=== PATIENT | male | born 1950 | race Caucasian/White ===

== ENCOUNTER 2017-04-29 14:05 | Inpatient (IN) | payer BC, MEDICARE ==
[~2017-04-29] VITALS: Ht 180.3 cm; Wt 93.5 kg
[~2017-04-29 14:05] MED LIST: ASP81CT PO; CRB200T PO; DCS100C PO; HYDR-34 PO; IBP600T1 PO; IBUP-15 PO; SULF1TAB38 PO; advil; tylenol PO
--- OUTSIDE RECORDS SUMMARY | 2017-04-29 14:11 | XMS REPORT | Continuity of Care Document ---
Author Author [facility] Organization [facility] Address Unknown Phone Unavailable Allergies Medications Problems Procedures Results Encounters ACCT No. Visit Date/Time Discharge Status Pt. Type Provider Facility Loc./Unit Complaint [id number] 03/12/2013 09:12:00 2013 00:01:00 DIS Outpatient [id number] 02/06/2013 10:30:00 2012 12:30:00 DIS Inpatient [id number] 02/04/2013 15:16:00 2012 23:59:59 CLS Outpatient [id number] 01/24/2013 08:48:00 2012 13:05:00 DIS Outpatient [id number] 01/22/2013 07:16:00 2012 23:59:59 CLS Outpatient [id number] 12/16/2012 15:03:00 2012 00:01:00 DIS Outpatient [id number] 12/24/2012 14:29:00 2012 23:59:59 CLS Outpatient [id number] 12/13/2012 15:06:00 2012 23:59:59 CLS Outpatient [id number] 12/06/2012 13:54:00 2012 23:59:59 CLS Outpatient [id number] 11/20/2012 15:09:00 2012 23:59:59 CLS Outpatient [id number] 11/11/2012 14:53:00 2012 23:59:59 CLS Outpatient [id number] 10/29/2012 13:00:00 2012 23:59:59 CLS Outpatient [id number] 10/22/2012 09:37:00 2012 23:59:59 CLS Outpatient [id number] 10/12/2012 17:42:00 2012 14:00:00 DIS Inpatient
--- NOTE | 2017-04-29 14:28 | ED General ---
General Chief Complaint: Lower Extremity Stated Complaint: UNABLE TO WALK Source of Information: Patient Exam Limitations: No Limitations History of Present Illness Time Seen by Provider: 14:24 Initial Comments To ER with unable to walk for the past week due to bilateral leg weakness. Patient states that his legs feel like Jell-O. He has a history of colon cancer treated with radiation, surgical resection, chemotherapy 4 years ago. He states that 2 weeks ago he was lifting a [place] tree and has since had pain between his shoulder blades as well as progressive weakness in both legs. He believes he injured this in picking up the [place] tree. However, the who is very tearful, states that this pain between his shoulder blades hasn 't fact been present for nearly a year, he did cough up blood within the last month and seems a bit more confused lately. He is a patient of Dr. Canales. states that he never followed up after treatment of his cancer and mentioned to her that he would never even consider chemotherapy again due to the toll it took on him during the first round. He does report a 20 pound weight loss in the last month as well as no appetite Timing/Duration: 1-2 Days Severity: Moderate Associated Systoms: Loss of Appetite Allergies and Home Medications Allergies Coded Allergies: No Known Drug Allergies (Unverified , 02/04/13) Home Medications Carbamazepine 200 Mg Tablet, 400 MG PO BID, (Reported) Hydrocodone Bit/Acetaminophen 1 Ea Tablet, 1-2 TAB PO Q4H PRN, #35 Ref 1 ( Reported) Constitutional: see HPI EENTM: see HPI Respiratory: see HPI, cough, hemoptysis Cardiovascular: no symptoms reported Genitourinary: no symptoms reported Musculoskeletal: see HPI, back pain Skin: no symptoms reported Psychiatric/Neurological: No Symptoms Reported Hematologic/Lymphatic: No Symptoms Reported Immunological/Allergic: no symptoms reported Past Ttilbql-Undwyr-Kzyiif Hx Patient Social History Alcohol Use: Denies Use Recreational Drug Use: No Smoking Status: Former Smoker Type Used: Cigarettes Former Smoker, Quit: Apr 13, 1966 Recent Foreign Travel: No Contact w/Someone Who Travel: No Immunizations Up To Date Tetanus Booster (TDap): Unknown Surgeries History of Surgeries: Yes (3 brain surg post trauma) Surgeries: Abdominal Respiratory History of Respiratory Disorde: Yes (PE post trauma 1994) Cardiovascular History of Cardiac Disorders: No Neurological History of Neurological Disord: Yes (trauma 1994; 3 brain surgeries) Reproductive System Hx Reproductive Disorders: No Sexually Transmitted Disease: No HIV/AIDS: No Gastrointestinal History of Gastrointestinal Di: Yes (COLON CA) Musculoskeletal History of Musculoskeletal Dis: Yes (back injury L5 1991) Musculoskeletal Disorders: Degenerate Disk Disease, Back Injury Endocrine History of Endocrine Disorders: No HEENT Hearing Impairment: Hard of Hearing Cancer History of Cancer: Yes Cancer: Colon Psychosocial History of Psychiatric Problem: No Integumentary History of Skin or Integumenta: Yes Skin/Integumentary Disorders: Eczema, Psoriasis Blood Transfusions History of Blood Disorders: No Adverse Reaction to a Blood Tr: No Family Medical History Significant Family History: Heart Disease, Hypertension Physical Exam Vital Signs Vital Sign - Last 12Hours 04/29/17 14:17 Temp 98.9 Pulse 66 Resp 16 B/P (MAP) 192/103 Pulse Ox 95 Capillary Refill : General Appearance: No Apparent Distress, WD/WN Eyes: Bilateral Eye Normal Inspection, Bilateral Eye PERRL HEENT: PERRL/EOMI, TMs Normal Neck: Full Range of Motion, Normal Inspection Respiratory: Normal Breath Sounds, No Accessory Muscle Use, No Respiratory Distress Cardiovascular: Regular Rate, Rhythm, Normal Peripheral Pulses Gastrointestinal: Normal Bowel Sounds, Non Tender, Soft Extremity: Normal Capillary Refill, Normal Inspection Neurologic/Psychiatric: Alert, Oriented x3, No Motor/Sensory Deficits Skin: Normal Color, Warm/Dry Progress/Results/Core Measures Suspected Sepsis SIRS Temperature: Pulse: Respiratory Rate: Laboratory Tests 04/29/17 14:03: White Blood Count 6.8 Blood Pressure / Mean: Laboratory Tests 04/29/17 14:03: Creatinine 0.85, INR Comment 1.0, Platelet Count 361, Total Bilirubin 0.4 Results/Orders Lab Results Laboratory Tests Test 04/29/17 14:03 04/29/17 15:45 Range/Units White Blood Count 6.8 4.3-11.0 10^3/uL Red Blood Count 4.25 L 4.35-5.85 10^6/uL Hemoglobin 13.6 13.3-17.7 G/DL Hematocrit 40 40-54 % Mean Corpuscular Volume 93 80-99 FL Mean Corpuscular Hemoglobin 32 25-34 PG Mean Corpuscular Hemoglobin Concent 34 32-36 G/DL Red Cell Distribution Width 12.0 10.0-14.5 % Platelet Count 361 130-400 10^3/uL Mean Platelet Volume 8.5 7.4-10.4 FL Neutrophils (%) (Auto) 76 H 42-75 % Lymphocytes (%) (Auto) 15 12-44 % Monocytes (%) (Auto) 9 0-12 % Eosinophils (%) (Auto) 0 0-10 % Basophils (%) (Auto) 0 0-10 % Neutrophils # (Auto) 5.2 1.8-7.8 X 10^3 Lymphocytes # (Auto) 1.0 1.0-4.0 X 10^3 Monocytes # (Auto) 0.6 0.0-1.0 X 10^3 Eosinophils # (Auto) 0.0 0.0-0.3 10^3/uL Basophils # (Auto) 0.0 0.0-0.1 10^3/uL Prothrombin Time 12.9 12.2-14.7 SEC INR Comment 1.0 0.8-1.4 Sodium Level 134 L 135-145 MMOL/L Potassium Level 4.5 3.6-5.0 MMOL/L Chloride Level 101 98-107 MMOL/L Carbon Dioxide Level 23 21-32 MMOL/L Anion Gap 10 5-14 MMOL/L Blood Urea Nitrogen 11 7-18 MG/DL Creatinine 0.85 0.60-1.30 MG/DL Estimat Glomerular Filtration Rate > 60 BUN/Creatinine Ratio 13 Glucose Level 102 70-105 MG/DL Calcium Level 10.2 H 8.5-10.1 MG/DL Total Bilirubin 0.4 0.1-1.0 MG/DL Aspartate Amino Transf (AST/SGOT) 24 5-34 U/L Alanine Aminotransferase (ALT/SGPT) 40 0-55 U/L Alkaline Phosphatase 186 H 40-136 U/L Total Protein 6.5 6.4-8.2 GM/DL Albumin 3.8 3.2-4.5 GM/DL Urine Color YELLOW Urine Clarity CLEAR Urine pH 6.5 5-9 Urine Specific [place] 1.010 L 1.016-1.022 Urine Protein 1+ H NEGATIVE Urine Glucose (UA) NEGATIVE NEGATIVE Urine Ketones 1+ H NEGATIVE Urine Nitrite NEGATIVE NEGATIVE Urine Bilirubin NEGATIVE NEGATIVE Urine Urobilinogen NORMAL NORMAL MG/DL Urine Leukocyte Esterase NEGATIVE NEGATIVE Urine RBC (Auto) NEGATIVE NEGATIVE Urine RBC NONE /HPF Urine WBC NONE /HPF Urine Squamous Epithelial Cells RARE /HPF Urine Crystals NONE /LPF Urine Bacteria NONE /HPF Urine Casts NONE /LPF Urine Mucus NEGATIVE /LPF Urine Culture Indicated NO My Orders Orders - JLUIS CRUZ APRN Ct Head Wo (04/29/17 14:22) Ct Thoracic/Lumbar Spine W (04/29/17 14:22) Cbc With Automated Diff (04/29/17 14:22) Comprehensive Metabolic Panel (04/29/17 14:22) Protime With Inr (04/29/17 14:22) Ua Culture If Indicated (04/29/17 14:22) Saline Lock/Iv-Start (04/29/17 14:22) Ns Iv 1000 Ml (Sodium Chloride 0.9%) (04/29/17 14:30) Ct Chest/Abdomen/Pelvis W (04/29/17 14:29) Iohexol Injection (Omnipaque 350 Mg/Ml 1 (04/29/17 15:00) Ns (Ivpb) (Sodium Chloride 0.9% Ivpb Bag (04/29/17 15:00) Medications Given in ED Current Medications Medications Dose Ordered Sig/Maggi Route Start Time Stop Time Status Last Admin Dose Admin Iohexol 100 ml ONCE ONCE IV 04/29/17 15:00 04/29/17 15:01 DC 04/29/17 15:04 100 ML Sodium Chloride 100 ml ONCE ONCE IV 04/29/17 15:00 04/29/17 15:01 DC 04/29/17 15:04 80 ML Vital Signs/I&O Vital Sign - Last 12Hours 04/29/17 14:17 Temp 98.9 Pulse 66 Resp 16 B/P (MAP) 192/103 Pulse Ox 95 Capillary Refill : Diagnostic Imaging Diagonstic Imaging: Xray Plain Films/CT/US/NM/MRI: chest Comments NAME: AMADO KING [facility] REC#: [id number] PT STATUS: REG ER : 1950 PHYSICIAN: JLUIS CRUZ APRN ADMIT DATE: 04/29/17/ER Draft Date of Exam:04/29/17 CT HEAD WO PROCEDURE: CT head without contrast. TECHNIQUE: Multiple contiguous axial images were obtained through the brain without the use of intravenous contrast. INDICATION: Head injury. History of colon cancer. COMPARISON: 02/12/2013. FINDINGS: Bifrontal encephalomalacia deep to bifrontal craniotomy, unchanged. Right temporoparietal cortical encephalomalacia also deep to a craniotomy site, unchanged. There is no intracerebral hemorrhage and no new or acute area of abnormal attenuation was found. No acute calvarial abnormality demonstrated. There is no hydrocephalus. No findings of edema. IMPRESSION: Extensive postsurgical changes to the calvarium, stable. Chronic areas of bifrontal and right temporal parietal cortical encephalomalacia, unchanged from 2013. No hemorrhage, edema or acute pathology. Dictated on workstation # [id number] Dict: 04/29/17 1505 Trans: 04/29/17 1510 [facility] [id number] Interpreted by: ELANA TEIXEIRA Electronically signed by: NAME: AMADO KING [facility] REC#: [id number] PT STATUS: REG ER : 1950 PHYSICIAN: JLUIS CRUZ APRN ADMIT DATE: 04/29/17/ER Draft Date of Exam:04/29/17 CT CHEST/ABDOMEN/PELVIS W PROCEDURE: CT chest, abdomen, and pelvis with contrast. TECHNIQUE: Multiple contiguous axial images were obtained through the chest, abdomen, and pelvis after the administration of intravenous contrast. INDICATION: Colon cancer. FINDINGS: CT CHEST: There are multiple bilateral pulmonary nodules present which are too numerous to count. These range in size from several millimeters up to 6.0 x 6.8 cm. This larger lesion is in the right lower lobe. There is a confluence of lesions in the right hilum that involve an area measuring approximately 7.0 x 8.5 cm. There is probably atelectatic lung in this confluence of lesions as well. There is no lobular infiltrate. There is no effusion or pneumothorax. There is no lymphadenopathy. No bony destructive lesions are seen. CT ABDOMEN/PELVIS: There is a vague 15 mm peripherally enhancing lesion seen in the medial segment of the left lobe of the liver which is difficult to determine if this is artifactual versus hemangioma versus neoplasm. No other liver lesions are evident. The gallbladder and bile ducts are normal. The spleen, pancreas and adrenals are normal. The kidneys, ureters and bladder are normal. There is a ventral hernia in the left lower quadrant containing a loop of small bowel. This may be at the site of a previous ostomy. There is no obstruction and no acute bowel abnormality is seen. There is no adenopathy. No bony destructive lesions are seen. IMPRESSION: 1. There are multiple bilateral lung lesions consistent with diffuse lung parenchymal metastatic disease. 2. There is a ventral hernia in the left lower quadrant. There is a vague lesion in the left lobe of the liver, which could be a metastatic lesion. Dictated on workstation # [id number] Dict: 04/29/17 1516 Trans: 04/29/17 1532 [facility] [id number] Interpreted by: ZULLY CROCKER MD Electronically signed by: NAME: AMADO KING [facility] REC#: [id number] PT STATUS: REG ER : 1950 PHYSICIAN: JLUIS CRUZ APRN ADMIT DATE: 04/29/17/ER Draft Date of Exam:04/29/17 CT THORACIC/LUMBAR SPINE W PROCEDURE: CT thoracic and lumbar spine with contrast. TECHNIQUE: After uneventful intrathecal administration of contrast, axial images were obtained through the thoracic and lumbar spine. INDICATION: Back pain. History of colon cancer. Difficulty moving. COMPARISON: Limited to a CT fusion PET performed 10/22/2012. FINDINGS: There are innumerable bilateral soft tissue density lung masses, presumptively reflective of widespread pulmonary parenchymal involvement by metastatic disease which appear new from the prior metabolic PET CT. There is mixed lytic and sclerotic disease involving the visualized lower cervical vertebral bodies, presumptively metastatic. There is marked destructive changes with lytic and sclerotic bony metastasis throughout the T3 vertebral body and its pedicles lamina and posterior elements with associated pathological fracture and mild posterior cortical retropulsion. Extensive lytic disease to the L1 vertebral body with pathological fracture of its mid to anterior third present. The disease extends posteriorly on the left via the pedicle and into with lamina and transverse process. This levels shows only mild leftward retropulsion. Multiple additional thoracolumbar bodies show more heterogeneous and less conspicuous altered density, likely widespread metastatic disease is present but no additional suspected pathological fracture is found. IMPRESSION: 1. Findings suggest extensive multifocal bony involvement by metastatic disease with pathological fractures at T3 and L1. If there are neurological symptoms present, MRI would be able to evaluate for soft tissue canalicular involvement which would not be an unexpected finding, particularly associated with the T3 lesion. 2. Widespread pulmonary parenchymal metastatic disease. Likely additional metastatic deposits are less conspicuous on CT than would be likely demonstrated on bone scan or MRI. Dictated on workstation # [id number] Dict: 04/29/17 1528 Trans: 04/29/17 1540 [facility] [id number] Interpreted by: ELANA TEIXEIRA Electronically signed by: Departure Communication (Admissions) Time/Spoke to Admitting Phy: 16:50 Communication I did discuss the diagnosis with Dr. Canales who came in to discuss this with the patient as well as he is a long-time friend of theirs. Patient's and daughter are very anxious about this diagnosis. Patient was told of the severity of disease. I did discuss with Dr. charles-up. We will admit. I discussed with Dr. Bob who is on-call for orthopedics and will evaluate the case tomorrow after an MRI of the thoracic spine to determine if there is any surgical intervention that would be helpful. We will consult Dr. Villanueva tomorrow from oncology. Time/Spoke to Consulting Phy: 16:51 Communication/Consulting I did speak with Dr. Bob from orthopedics and notified him on consult. I will let the floor nurses consult Dr. 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 Referrals: CLARENCE CANALES MD (PCP/Family) Primary Care Physician JLUIS CRUZ APRN Apr 29, 2017 14:27
[2017-04-29] MEDS ORDERED: NS IV 1000 ML 1,000 ML IV SCH (14:30)
[2017-04-29 14:32] LABS: BASOPHILS % (AUTO) 0 % (0-10); EOSINOPHILS % (AUTO) 0 % (0-10); LYMPHOCYTES % (AUTO) 15 % (12-44); MEAN CORPUSCULAR HEMOGLOBIN 32 PG (25-34); MEAN CORPUSCULAR HGB CONC 34 G/DL (32-36); MEAN CORPUSCULAR VOLUME 93 FL (80-99); MEAN PLATELET VOLUME 8.5 FL (7.4-10.4); MONOCYTES # (AUTO) 0.6 X 10^3 (0.0-1.0); MONOCYTES % (AUTO) 9 % (0-12); NEUTROPHILS # (AUTO) 5.2 X 10^3 (1.8-7.8); NEUTROPHILS % (AUTO) 76 % (42-75); PLATELET COUNT 361 10^3/uL (130-400); RED BLOOD COUNT 4.25 10^6/uL (4.35-5.85); WHITE BLOOD COUNT 6.8 10^3/uL (4.3-11.0)
[2017-04-29 14:36] LABS: PROTHROMBIN TIME PATIENT 12.9 SEC (12.2-14.7)
[2017-04-29 14:42] LABS: ALANINE AMINOTRANSFERASE 40 U/L (0-55); ALBUMIN 3.8 GM/DL (3.2-4.5); ANION GAP 10 MMOL/L (5-14); ASPARTATE AMINO TRANSFERASE 24 U/L (5-34); BILIRUBIN,TOTAL 0.4 MG/DL (0.1-1.0); BLOOD UREA NITROGEN 11 MG/DL (7-18); BUN/CREATININE RATIO 13; CALCIUM 10.2 MG/DL (8.5-10.1); CARBON DIOXIDE 23 MMOL/L (21-32); CHLORIDE 101 MMOL/L (98-107); CREATININE SERUM 0.85 MG/DL (0.60-1.30); GFR ESTIMATED > 60; GLUCOSE 102 MG/DL (70-105); POTASSIUM 4.5 MMOL/L (3.6-5.0); SODIUM 134 MMOL/L (135-145); TOTAL PROTEIN 6.5 GM/DL (6.4-8.2)
[2017-04-29] MEDS ORDERED: IOHEXOL 350 MG/ML 100 ML (OMNIPAQUE 350) VIAL IV ONE (15:00)
[2017-04-29] MEDS ORDERED: NS 100 ML (IVPB) BAG IV ONE (15:00)
--- NOTE | 2017-04-29 15:10 | Diagnostic Imaging Report ---
PROCEDURE: CT head without contrast. TECHNIQUE: Multiple contiguous axial images were obtained through the brain without the use of intravenous contrast. INDICATION: Head injury. History of colon cancer. COMPARISON: 02/12/2013. FINDINGS: Bifrontal encephalomalacia deep to bifrontal craniotomy, unchanged. Right temporoparietal cortical encephalomalacia also deep to a craniotomy site, unchanged. There is no intracerebral hemorrhage and no new or acute area of abnormal attenuation was found. No acute calvarial abnormality demonstrated. There is no hydrocephalus. No findings of edema. IMPRESSION: Extensive postsurgical changes to the calvarium, stable. Chronic areas of bifrontal and right temporal parietal cortical encephalomalacia, unchanged from 2013. No hemorrhage, edema or acute pathology. Dictated by: Dictated on workstation # [id number]
--- NOTE | 2017-04-29 15:33 | Diagnostic Imaging Report ---
PROCEDURE: CT chest, abdomen, and pelvis with contrast. TECHNIQUE: Multiple contiguous axial images were obtained through the chest, abdomen, and pelvis after the administration of intravenous contrast. INDICATION: Colon cancer. FINDINGS: CT CHEST: There are multiple bilateral pulmonary nodules present which are too numerous to count. These range in size from several millimeters up to 6.0 x 6.8 cm. This larger lesion is in the right lower lobe. There is a confluence of lesions in the right hilum that involve an area measuring approximately 7.0 x 8.5 cm. There is probably atelectatic lung in this confluence of lesions as well. There is no lobular infiltrate. There is no effusion or pneumothorax. There is no lymphadenopathy. No bony destructive lesions are seen. CT ABDOMEN/PELVIS: There is a vague 15 mm peripherally enhancing lesion seen in the medial segment of the left lobe of the liver which is difficult to determine if this is artifactual versus hemangioma versus neoplasm. No other liver lesions are evident. The gallbladder and bile ducts are normal. The spleen, pancreas and adrenals are normal. The kidneys, ureters and bladder are normal. There is a ventral hernia in the left lower quadrant containing a loop of small bowel. This may be at the site of a previous ostomy. There is no obstruction and no acute bowel abnormality is seen. There is no adenopathy. No bony destructive lesions are seen. IMPRESSION: 1. There are multiple bilateral lung lesions consistent with diffuse lung parenchymal metastatic disease. 2. There is a ventral hernia in the left lower quadrant. There is a vague lesion in the left lobe of the liver, which could be a metastatic lesion. Dictated by: Dictated on workstation # [id number]
--- NOTE | 2017-04-29 15:40 | Diagnostic Imaging Report ---
PROCEDURE: CT thoracic and lumbar spine with contrast. TECHNIQUE: After uneventful intrathecal administration of contrast, axial images were obtained through the thoracic and lumbar spine. INDICATION: Back pain. History of colon cancer. Difficulty moving. COMPARISON: Limited to a CT fusion PET performed 10/22/2012. FINDINGS: There are innumerable bilateral soft tissue density lung masses, presumptively reflective of widespread pulmonary parenchymal involvement by metastatic disease which appear new from the prior metabolic PET CT. There is mixed lytic and sclerotic disease involving the visualized lower cervical vertebral bodies, presumptively metastatic. There is marked destructive changes with lytic and sclerotic bony metastasis throughout the T3 vertebral body and its pedicles lamina and posterior elements with associated pathological fracture and mild posterior cortical retropulsion. Extensive lytic disease to the L1 vertebral body with pathological fracture of its mid to anterior third present. The disease extends posteriorly on the left via the pedicle and into with lamina and transverse process. This levels shows only mild leftward retropulsion. Multiple additional thoracolumbar bodies show more heterogeneous and less conspicuous altered density, likely widespread metastatic disease is present but no additional suspected pathological fracture is found. IMPRESSION: 1. Findings suggest extensive multifocal bony involvement by metastatic disease with pathological fractures at T3 and L1. If there are neurological symptoms present, MRI would be able to evaluate for soft tissue canalicular involvement which would not be an unexpected finding, particularly associated with the T3 lesion. 2. Widespread pulmonary parenchymal metastatic disease. Likely additional metastatic deposits are less conspicuous on CT than would be likely demonstrated on bone scan or MRI. Dictated by: Dictated on workstation # [id number]
[2017-04-29 16:05] LABS: BILIRUBIN,URINE NEGATIVE (NEGATIVE); KETONES,URINE 1+ (NEGATIVE); LEUKOCYTE ESTERASE ,URINE NEGATIVE (NEGATIVE); NITRITE,URINE NEGATIVE (NEGATIVE); PH,URINE 6.5 (5-9); PROTEIN,URINE 1+ (NEGATIVE); UROBILINOGEN,URINE NORMAL (NORMAL)
[2017-04-29 16:12] LABS: SQUAMOUS EPITHELIAL CELL,UR RARE /HPF
--- OUTSIDE RECORDS SUMMARY | 2017-04-29 17:21 | XMS REPORT | Continuity of Care Document ---
Author Author [facility] Organization [facility] Address Unknown Phone Unavailable Allergies Medications Problems Procedures Results Encounters ACCT No. Visit Date/Time Discharge Status Pt. Type Provider Facility Loc./Unit Complaint [id number] 03/12/2013 09:12:00 2013 00:01:00 DIS Outpatient [id number] 02/06/2013 10:30:00 2012 12:30:00 DIS Inpatient [id number] 02/04/2013 15:16:00 2012 23:59:59 CLS Outpatient [id number] 01/24/2013 08:48:00 2012 13:05:00 DIS Outpatient [id number] 01/22/2013 07:16:00 2012 23:59:59 CLS Outpatient [id number] 12/16/2012 15:03:00 2012 00:01:00 DIS Outpatient [id number] 12/24/2012 14:29:00 2012 23:59:59 CLS Outpatient [id number] 12/13/2012 15:06:00 2012 23:59:59 CLS Outpatient [id number] 12/06/2012 13:54:00 2012 23:59:59 CLS Outpatient [id number] 11/20/2012 15:09:00 2012 23:59:59 CLS Outpatient [id number] 11/11/2012 14:53:00 2012 23:59:59 CLS Outpatient [id number] 10/29/2012 13:00:00 2012 23:59:59 CLS Outpatient [id number] 10/22/2012 09:37:00 2012 23:59:59 CLS Outpatient [id number] 10/12/2012 17:42:00 2012 14:00:00 DIS Inpatient
[2017-04-29 17:46] VITALS: BP 180/75
[2017-04-29] MEDS ORDERED: CARB200T PO (17:57)
[2017-04-29] MEDS ORDERED: IBUP-2055 PO (18:04)
[2017-04-29] MEDS ORDERED: ACET325T49 PO (18:04)
[2017-04-29] MEDS: NS IV 1000 ML 1,000 ML IV SCH (18:05)
[2017-04-29] MEDS: fentaNYL INJECTION 100 MCG/2 ML AMP IVP PRN ×2 (19:25→23:46)
[2017-04-29 19:53] VITALS: BP 174/75
[2017-04-29] MEDS ORDERED: CATHETER FLUSH 10 ML SYR IV PRN (20:30)
[2017-04-29] MEDS: CATHETER FLUSH 10 ML SYR IV SCH (20:52)
[2017-04-30 00:43] VITALS: BP 170/80
[2017-04-30] MEDS: NS IV 1000 ML 1,000 ML IV SCH ×4 (02:10→20:12)
[2017-04-30 04:02] VITALS: BP 171/81
[2017-04-30] MEDS: CATHETER FLUSH 10 ML SYR IV SCH ×3 (05:40→20:13)
[2017-04-30] MEDS: fentaNYL INJECTION 100 MCG/2 ML AMP IVP PRN ×2 (06:11→08:56)
[2017-04-30] MEDS ORDERED: INFLUENZA TRIvalent 2017-2018 0.5 ML/45 MCG SYR IM ONE (07:15)
[2017-04-30 08:00] VITALS: BP 139/77
[2017-04-30] MEDS ORDERED: ACETAMINOPHEN 500 MG TAB (TYLENOL) ONE (09:40)
[2017-04-30] MEDS: ACETAMINOPHEN 500 MG TAB (TYLENOL) PO PRN (10:00)
[2017-04-30 12:00] VITALS: BP 161/84
--- NOTE | 2017-04-30 12:30 | History & Physical-Hospitalist ---
HPI History of Present Illness: HPI/Chief Complaint The patient is a 67-year-old white male who presented to the emergency room last night with complaints of back pain and bilateral leg weakness. He is very hard of hearing and may be slightly confused. He was found to have colon cancer approximate 4 years ago. He was treated with radiation chemotherapy and surgical resection. His reports that for some time he has reported mild back pain. Over the last 2 weeks this has gotten worse. Ultimately it week ago or so he was getting an artificial [place] tree down from the loft in the garage. Although his daughter had protested she would help he took it upon himself. The box was not particularly heavy but rather unwieldy and his pain increased. Over the last several days he has been having more and more trouble with back pain and difficulty walking. He was brought by family to be more confused yesterday. He apparently has experienced poor appetite and a recent weight loss which may be as much as 20 pounds over the last month. In the emergency room studies were done which showed extensive metastatic disease both pulmonary and multifocal in the spine. In addition there was evidence of vertebral compression fractures and possible cord compression at T3 and L1. Source: patient, family Exam Limitations: no limitations Date Seen 04/30/17 Time Seen by Provider: 12:00 Attending Physician Cammy Tse MD PCP Rafi Canales MD Referring Physician Date of Admission Apr 29, 2017 at 16:36 Home Medications & Allergies Home Medications Reviewed patient Home Medication Reconciliation Form Allergies Allergies Coded Allergies No Known Drug Allergies ([id number]/26/17) Past Xqmspgo-Afpexk-Qgtwmj Hx Patient Social History Alcohol Use: Denies Use Number of Drinks Today: AA Recreational Drug Use: No Smoking Status: Former Smoker Former Smoker, Quit: Apr 13, 1966 Type Used: Cigarettes Physical Abuse Screen: No Sexual Abuse: No Recent Foreign Travel: No Contact w/other who traveled: No Recent Hopitalizations: No Recent Infectious Disease Expo: No Immunizations Up To Date Tetanus Booster (TDap): Unknown Pediatric: No Seasonal Allergies Seasonal Allergies: No Surgeries Yes (3 brain surg post trauma) Abdominal Respiratory Yes (PE post trauma 1994) Currently Using CPAP: No Currently Using BIPAP: No Cardiovascular No Neurological Yes (trauma 1994; 3 brain surgeries) Reproductive System Hx Reproductive Disorders: No Sexually Transmitted Disease: No HIV/AIDS: No Genitourinary No Gastrointestinal Yes (COLON CA) Musculoskeletal Yes (back injury L5 1992) Degenerate Disk Disease, Back Injury Endocrine History of Endocrine Disorders: No Are Your Blood Sugars Over 250: No HEENT History of HEENT Disorders: Yes ([place]) Hearing Impairment: Hard of Hearing Cancer Yes Colon Psychosocial History of Psychiatric Problem: No Integumentary History of Skin or Integumenta: Yes Skin/Integumentary Disorders: Eczema, Psoriasis Blood Transfusions History of Blood Disorders: No Adverse Reaction to a Blood Tr: No Family Medical History Significant Family History: Heart Disease, Hypertension Family Hx: Patient reports no known family medical history. Review of Systems Constitutional: see HPI EENTM: no symptoms reported Respiratory: no symptoms reported, other (hemoptysis within the past month) Cardiovascular: no symptoms reported Gastrointestinal: loss of appetite Genitourinary: no symptoms reported Musculoskeletal: back pain, muscle weakness Skin: no symptoms reported Psychiatric/Neurological: No Symptoms Reported Physical Exam Physical Exam Vital Signs Vital Sign - Last 12Hours 04/29/17 04/29/17 14:17 17:46 Temp 98.9 Pulse 66 Resp 16 B/P (MAP) 192/103 Pulse Ox 95 O2 Delivery Room Air Capillary Refill : Less Than 3 Seconds General Appearance: No Apparent Distress, WD/WN Eyes: Bilateral Eye Normal Inspection HEENT: Normal ENT Inspection Neck: Normal Inspection Respiratory: Chest Non Tender, Lungs Clear, Normal Breath Sounds, No Accessory Muscle Use, No Respiratory Distress, Decreased Breath Sounds (distant) Cardiovascular: Regular Rate, Rhythm, No Edema, No Gallop, No JVD, No Murmur, Normal Peripheral Pulses Gastrointestinal: Normal Bowel Sounds, No Organomegaly, No Pulsatile Mass, Non Tender, Soft Back: Normal Inspection, No CVA Tenderness, No Vertebral Tenderness Extremity: Normal Capillary Refill, Normal Inspection, Non Tender, No Calf Tenderness, No Pedal Edema Neurologic/Psychiatric: Alert, Oriented x3, Normal 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 2.widely placed pulmonary metastases. 3.adenocarcinoma of the colon diagnosis approximately 4 years. Assessment and Plan Plan: MRI spine for more detailed information relative to spinal cord compression. 2.ortho 4 states spine evaluation Clinical Quality Measures DVT/VTE Risk/Contraindication: Risk Factor Score Per Nursin RFS Level Per Nursing on Admit: 4+=Very High PERRI KNUTSON MD Apr 30, 2017 12:30
[2017-04-30] MEDS: HYDROmorphone (DILAUDID) 2 MG/ML VIAL IVP PRN ×2 (13:01→17:24)
[2017-04-30] MEDS ORDERED: GADOBUTROL 10 MMOL/10 ML (GADAVIST) VIAL IV ONE (14:00)
[2017-04-30 16:00] VITALS: BP 138/67
--- NOTE | 2017-04-30 16:16 | Diagnostic Imaging Report ---
EXAMINATION: Multiplanar, multisequence MRI of the thoracic spine performed with and without intravenous contrast. INDICATION: Metastatic colon cancer to the spine. FINDINGS: There is a pathologic fracture involving T3 vertebral body level with 50% vertebral body height loss and an enhancing mass involving the vertebral body and the posterior elements with extension into the epidural space. This is resulting in moderate to severe spinal canal stenosis reducing the AP dimension of the central canal to 6.4 mm with suggestion of mild cord compression and minimal cord edema. There is also tumor enhancement seen around the neural foramina of T2/3 resulting in moderate stenosis on the left and severe stenosis on the right side. There is suggestion of a compression fracture at L1 vertebral body favored to be chronic. There is however abnormal marrow signal and enhancement at T12 and L1 vertebral bodies and posterior elements. This level demonstrates no significant spinal canal stenosis however. The other vertebral bodies in the thoracic spine demonstrate normal height and no significant disc herniation, spinal canal stenosis or mass. IMPRESSION: 1. A 50% pathologic compression fracture of T3 vertebral body related to an underlying metastatic mass that extends to the surrounding soft tissues and posterior elements. There is mass extension into the epidural space at this level resulting in moderate to severe spinal canal stenosis and mild cord compression with minimal cord edema. 2. Abnormal enhancement involving vertebral bodies and posterior elements of primarily L1 and to a lesser degree T12 vertebral bodies suggestive of metastatic disease. This appears to be superimposed on an old L1 30% compression fracture. Doctor claude Ansari is called and given findings at time of dictation. Dictated by: Dictated on workstation # [id number]
--- NOTE | 2017-04-30 16:23 | Diagnostic Imaging Report ---
PROCEDURE: MRI lumbar spine with and without contrast. TECHNIQUE: Multiplanar, multisequence MRI of the lumbar spine was performed with and without contrast. INDICATION: Colon cancer metastasis. 8 mL of Gadavist is administered intravenously. FINDINGS: The alignment of the lumbar spine is satisfactory. There is a compression fracture of 30% height loss at L1 level with features suggestive of chronicity. There is, however, significant bone marrow signal abnormality within the L1 vertebral body and posterior elements as well as vertebral body of T12 and its posterior elements. This is worse along the posterior elements on the left side and worse along the left side of the vertebral bodies. There is also along the left side of L2 vertebral body a lesion measuring 1.4 cm. All these lesions demonstrate postcontrast enhancement. These lesions are compatible with metastatic disease. There is no significant spinal canal stenosis at any level. The cauda equina and conus medullaris appear grossly unremarkable with no enhancing nodules within the thecal sac. There is disc desiccation at all levels. T12/L1: There is metastatic disease involving mostly the left side of the vertebral bodies and posterior elements. The left neural foramen is severely compressed by tumor at this level. The right foramen is patent. There is tumor moderately compressing the lateral recess on the left side as well at this level. L1/2: No disc herniation, no spinal canal stenosis. There is apvhvgud-gj-yikmxv left foraminal narrowing from tumor extension. L2/3: There is no significant disc herniation and no spinal canal stenosis. No foraminal narrowing. L3/4: No spinal canal stenosis. There is facet hypertrophy. Mild foraminal stenosis is seen bilaterally. L4/5: Mild disc bulge without spinal canal stenosis. Hlvy-mg-flqfwrqx facet hypertrophy. There is bilateral moderate foraminal stenosis. L5/S1: There is an asymmetric disc bulge to the left. There is no spinal canal stenosis. The foramina demonstrate moderate stenosis bilaterally. IMPRESSION: There is suggestion of metastatic disease involving the L1 and T12 vertebral bodies, mostly on the left side and associated with extension into the posterior elements on the left side as well as minimal epidural extension in the lateral aspect of the spinal canal on the left side without significant spinal canal stenosis. The left lateral recess demonstrates some compression, however. There is also stenosis of the left neural foramina at T12/L1 and L1/L2. There is suggestion of an old 30% compression fracture of L1. Dictated by: Dictated on workstation # [id number]
--- NOTE | 2017-04-30 16:24 | Diagnostic Imaging Report ---
PROCEDURE: MR imaging cervical spine with and without contrast. TECHNIQUE: Multiplanar and multisequence MRI of the cervical spine was performed with and without contrast. INDICATION: Metastatic colon cancer. Weakness. 8 mL of Gadovist is administered intravenously. FINDINGS: There is reversal of the curvature of the cervical spine. The vertebral body heights are preserved. There is disc desiccation at all levels. The spinal cord in the cervical segments demonstrates no significant compression or mass seen within the cervical segments. At T3 vertebral body, there is a pathologic fracture with a mass that extends into the epidural space causing wampqkcu-jx-ctgroe spinal canal stenosis and mild cord compression as described in the thoracic spine dedicated study. There are no metastatic lesions seen in the cervical spine. The cervical spine segments of the spinal cord demonstrate normal signal. Disc spur complexes are seen in the mid and lower cervical spine levels with no significant spinal canal stenosis at any level. The foramina assessment is as follows: C2-C3: Mild stenosis only on the left. C3-C4: Rayz-fr-czgzdukd stenosis on the right and mild stenosis on the left. C4-C5: Bilateral stenosis of worxlbhi-ij-wfoaqf degree on the right and moderate degree on the left. C5-C6: Severe stenosis on the right and moderate stenosis on the left. C7-T1: Bilateral moderate stenosis. IMPRESSION: 1. Pathologic fracture at T3 level with enhancing tumor in the epidural space causing mild cord compression. 2. No evidence of metastatic disease in the cervical spine. 3. Multilevel neuroforaminal stenosis with no high-grade spinal canal stenosis in the cervical spine seen at any level. The findings in the thoracic spine were discussed with Dr. Bob and with Dr. Ansari by Dr. Velazquez at time of dictation. Dictated by: Dictated on workstation # [id number]
[2017-04-30] MEDS ORDERED: DEXAMETHASONE 4 MG/ML SDV (DECADRON) IV SCH (17:00)
--- NOTE | 2017-04-30 17:26 | Oncology Consultation ---
Visit Information Visit Information Date of Admission Apr 29, 2017 at 16:36 Attending Physician Cammy Tse MD Admitting Physician Rafi Canales MD Chief Complaint Back pain and weakness of the legs. H/o colon cancer Interval History Mr. Pathak is a 67 year old white man with h/o stage II adenocarcinoma of the colon 2013 s/p neoadjuvant chemoradiation treatment followed by surgical resection 03/[address] Campbell. He lost follow up since the surgery. He presented to ER yesterday with back pain and weakness of the legs. CT scan showed multiple lung masses and liver mets. MRI showed multiple bone mets with pathological fractures at T3, T12/L1/L2 areas and mild cord compression. He was admitted for pain control and IV steroid. His legs are getting better today since the steroid and Fentanyl treatment. No loss of bowel and bladder. I consulted the patient on: 04/30/17 17:18 Time Seen by Provider: 16:45 Constitutional: weakness EENTM: no symptoms reported Respiratory: no symptoms reported Cardiovascular: no symptoms reported Gastrointestinal: see HPI Genitourinary: see HPI Health Status Allergies Coded Allergies: No Known Drug Allergies (Unverified , 04/29/17) Home Medications Acetaminophen (Acetaminophen) 325 Mg Tablet, 650 MG PO Q6H PRN for PAIN-MILD, ( Reported) TAKES 2 (325 MG) TABLETS / TAKES ALONG WITH IBUPROFEN Carbamazepine (Tegretol) 200 Mg Tablet, 400 MG PO BID, (Reported) TAKES 2 (200 MG) TABLETS Ibuprofen (Ibuprofen) 200 Mg Tablet, 400-800 MG PO Q6H PRN for PAIN-MILD, ( Reported) TAKES 2-4 (200 MG) TABLETS / TAKES ALONG WITH ACETAMINOPHEN ZFQ-Ehexfm-Xuqbye Hx Patient Social History Alcohol Use: Denies Use Recreational Drug Use: No Smoking Status: Former Smoker Type Used: Cigarettes Recent Foreign Travel: No Contact w/other who traveled: No Recent Infectious Disease Expo: No Recent Hopitalizations: No Physical Abuse Screen: No Sexual Abuse: No Immunizations Up To Date Tetanus Booster (TDap): Unknown Family Medical History Significant Family History: Heart Disease, Hypertension Family History: Patient reports no known family medical history. Physical Exam Vital Signs Vital Sign - Last 12Hours 04/29/17 04/29/17 14:17 17:46 Temp 98.9 Pulse 66 Resp 16 B/P (MAP) 192/103 Pulse Ox 95 O2 Delivery Room Air Capillary Refill : Less Than 3 Seconds General Appearance: No Apparent Distress HEENT: PERRL/EOMI Neck: Supple Respiratory: Chest Non Tender, Lungs Clear, No Accessory Muscle Use, No Respiratory Distress Cardiovascular: Regular Rate, Rhythm, No JVD Gastrointestinal: Non Tender, Soft Extremity: Non Tender, No Calf Tenderness, No Pedal Edema Neurologic/Psychiatric: Alert, Oriented x3 Data Review Labs Laboratory Tests 04/29/17 14:03: Red Blood Count 4.25L, Neutrophils (%) (Auto) 76H, Sodium Level 134L, Calcium Level 10.2H, Alkaline Phosphatase 186H 04/29/17 15:45: Urine Specific [place] 1.010L, Urine Protein 1+H, Urine Ketones 1+H Impression & Plan Impression & Plan IMP: 1. Adenocarcinoma of the colon, s/p neoadjuvant chemoradiation (Xeloda) 2012, now recurrence with multiple mets in the lung, live and bone. 2. Pathological fractures T3, T12/L1/L2 and mild cord compression with symptoms of pain and weakness of lower extremities. However, symptoms improved with IV steroid and pain meds. 3. Good performance prior to this admission. 4. Pt is not interested in chemotherapy at this point but OK for radiation. 5. H/o L1 compression fracture due to injury over 10 years ago. Plan: 1. Decadron 4mg q 6hrs 2. Agree with Fentanyl pain control 3. Consult Rad/Onc Dr Estrada first thing in the morning 4. Pepcid while on the steroid. 5. Anticipate discharge home on Sun and f/u at cancer center. TAHMINA WILKES MD Apr 30, 2017 17:26
[2017-04-30] MEDS: DEXAMETHASONE 4 MG/ML SDV (DECADRON) IV SCH ×2 (17:38→23:56)
[2017-04-30] MEDS: ONDANSETRON 4 MG/2 ML (SDV) Z0FRAN IVP PRN (20:09)
[2017-04-30 20:39] VITALS: BP 170/79
[2017-05-01 00:07] VITALS: BP 154/82
[2017-05-01] MEDS: CATHETER FLUSH 10 ML SYR IV SCH ×3 (03:55→20:17)
[2017-05-01 04:16] VITALS: BP 172/94
[2017-05-01] MEDS: DEXAMETHASONE 4 MG/ML SDV (DECADRON) IV SCH ×3 (05:45→18:56)
[2017-05-01] MEDS: NS IV 1000 ML 1,000 ML IV SCH ×3 (06:11→16:35)
[2017-05-01 08:00] VITALS: BP 179/81
[2017-05-01] MEDS: MILK OF MAGNESIA 400 MG/5 ML 30 ML UDC PO PRN ×2 (10:55→20:16)
[2017-05-01 12:00] VITALS: BP 183/88
[2017-05-01] MEDS: fentaNYL INJECTION 100 MCG/2 ML AMP IVP PRN ×3 (12:19→20:17)
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
[2017-05-01 16:08] VITALS: BP 170/76
--- NOTE | 2017-05-01 16:28 | Oncology Progress Note ---
Subjective Time Seen by Provider: 16:00 Subjective/Events-last exam Pt had his first radiation treatment. He is feeling weak today, specially both legs. Unsteady to walk. Back pain whenever he moves, requires IV Fentanyl Data Review Labs Laboratory Tests 04/29/17 14:03: Red Blood Count 4.25L, Neutrophils (%) (Auto) 76H, Sodium Level 134L, Calcium Level 10.2H, Alkaline Phosphatase 186H 04/29/17 15:45: Urine Specific [place] 1.010L, Urine Protein 1+H, Urine Ketones 1+H Physical Exam Vital Signs Vital Sign - Last 12Hours 04/29/17 04/29/17 14:17 17:46 Temp 98.9 Pulse 66 Resp 16 B/P (MAP) 192/103 Pulse Ox 95 O2 Delivery Room Air Capillary Refill : Less Than 3 Seconds General Appearance: No Apparent Distress HEENT: PERRL/EOMI Neck: Supple Respiratory: Lungs Clear, No Accessory Muscle Use, No Respiratory Distress Gastrointestinal: Non Tender, Soft Extremity: Non Tender, No Calf Tenderness, No Pedal Edema Neurologic/Psychiatric: Alert, Oriented x3 Impression & Plan Impression & Plan IMP: 1. Adenocarcinoma of the colon, s/p neoadjuvant chemoradiation (Xeloda) 2012, now recurrence with multiple mets in the lung, live and bone. 2. Pathological fractures T3, T12/L1/L2 and mild cord compression with symptoms of pain and weakness of lower extremities. He had his first radiation treatment today. 3. Bilateral lower extremities weakness and unsteady gait. Not able to walk and not able to go home even though patient wants to go home 4. Pt is not interested in chemotherapy at this point but OK for radiation. 5. H/o L1 compression fracture due to injury over 10 years ago. Plan: 1. Decadron 4mg q 6hrs 2. Agree with IV Fentanyl pain control 3. Continue radiation treatment, planned for 10 doses. 4. Pepcid while on the steroid. 5. Swing bed evaluation since patient is not able to go home for a while. 6. Physical therapy evaluation. Clinical Quality Measures DVT/VTE Risk/Contraindication: Risk Factor Score Per Nursin RFS Level Per Nursing on Admit: 4+=Very High TAHMINA WILKES MD May 01, 2017 16:28
--- NOTE | 2017-05-01 17:29 | Progress Note-Hospitalist ---
Standard Progress Note Progress Notes/Assess & Plan Date Seen 05/01/17 Time Seen by Provider: 17:26 Diagnosis 1.metastatic colon cancer to spine with evidence of cord compression. 2.widely placed pulmonary metastases. 3.adenocarcinoma of the colon diagnosis approximately 4 years. Assess & Plan/Chief Complaint The patient has explored his options and decided that he will proceed with radiation to the upper thoracic area. The first treatment was done today. He also reports that his legs feel much better this is likely the Decadron effect. Physical exam: He appears brighter and more interactive today. Lungs are clear to auscultation. CV is regular. He was asked to perform straight leg lift and his performance appears much improved over yesterday. He is able to raise the legs to 60 and sustain this for a period of time. Impression: Metastatic colon cancer. 2.cord compression in the thoracic Spine secondary to number 1 Plan: Continue Decadron and radiation PERRI KNUTSON MD May 01, 2017 17:29
[2017-05-01] MEDS: FAMOTIDINE 20 MG (PEPCID) TABLET PO SCH (20:16)
[2017-05-01 20:54] VITALS: BP 187/89
[2017-05-02] VITALS: BP 175/86
[2017-05-02] MEDS: NS IV 1000 ML 1,000 ML IV SCH ×3 (00:08→16:17)
[2017-05-02] MEDS: DEXAMETHASONE 4 MG/ML SDV (DECADRON) IV SCH ×5 (00:08→23:25)
[2017-05-02] MEDS: CATHETER FLUSH 10 ML SYR IV SCH ×3 (02:40→22:01)
[2017-05-02 04:00] VITALS: BP 173/84
[2017-05-02 08:00] VITALS: BP 171/95
[2017-05-02] MEDS: FAMOTIDINE 20 MG (PEPCID) TABLET PO SCH ×2 (08:25→20:03)
[2017-05-02] MEDS: fentaNYL INJECTION 100 MCG/2 ML AMP IVP PRN ×2 (08:26→12:18)
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
[2017-05-02] MEDS: MILK OF MAGNESIA 400 MG/5 ML 30 ML UDC PO PRN ×2 (11:25→20:03)
[2017-05-02 12:00] VITALS: BP 159/82
--- NOTE | 2017-05-02 12:01 | Progress Note-Hospitalist ---
Standard Progress Note Progress Notes/Assess & Plan Date Seen 05/02/17 Time Seen by Provider: 11:59 Diagnosis 1.metastatic colon cancer to spine with evidence of cord compression. 2.widely placed pulmonary metastases. 3.adenocarcinoma of the colon diagnosis approximately 4 years. Assess & Plan/Chief Complaint The patient and his family are in good spirits. They report that he had a buckling of the left knee when standing this morning. He is able to straight leg lift quite well and it was suggested that he do repeated straight leg lifts while in bed to improve his quad strength. Physical exam: Lungs are clear to auscultation. CV is regular. Extremities show no edema. He is able to straight leg lift quite easily with both legs. Impression: Metastatic colon cancer with evidence of thoracic cord compression. 2.widely placed pulmonary metastases. 3.adenocarcinoma the large bowel. 2012 PERRI KNUTSON MD May 02, 2017 12:01
[2017-05-02] MEDS: ONDANSETRON 4 MG/2 ML (SDV) Z0FRAN IVP PRN (12:18)
--- NOTE | 2017-05-02 13:17 | Physical Therapy Evaluation ---
PT Evaluation-General Medical Diagnosis Admission Date Apr 29, 2017 at 16:36 Medical Diagnosis: cord compression and colon cancer Onset Date: Apr 29, 2017 Therapy Diagnosis Therapy Diagnosis: impaired mobility, strength, endurance, balance Height/Weight Height (Feet): 5 Height (Inches): 11.00 Weight (Pounds): 204 Weight (Ounces): 0.0 Precautions Precautions/Isolations: Fall Prevention, Standard Precautions Weight Bear Status Right Lower Extremity: Right Full Weight Bearing Left Lower Extremity: Left Full Weight Bearing Referral Physician: Eligio Villanueva MD Reason for Referral: Evaluation/Treatment Medical History Additional Medical History former smoker, colon CA, DDD, back injury, [place], eczema, psoriasis, surg (3 brain surgeries post trauma, abdominal) Reviewed History: Yes Social History Home: Single Level Current Living Status: Spouse Entry Into Home: Stairs Without Railing PT Steps Into Home: 3 Prior/Core FIM Prior Level of Function Functional [place] Measure 0=Not Assessed/NA 4=Minimal Assistance 1=Total Assistance 5=Supervision or Setup 2=Maximal Assistance 6=Modified [place] 3=Moderate Assistance 7=Complete [place] PT Evaluation-Current Subjective Patient in bed pre tx, agrees to PT, has no pain but he states that he often has significant low back pain. Pt/Family Goals "to get stronger and go home" Objective Patient Orientation: Person, Place, Situation Attachments: IV ROM/Strength ROM Lower Extremities WNL Strength Lower Extremities right lower extremity (hip flexion 4/5, knee flexion 4/5, knee extension 4+/5, dorsiflexion 5/5), left lower extremity (hip flexion 4/5, knee flexion 4/5, knee extension 4+/5, dorsiflexion 5/5) Integumentary/Posture Bowel Incontinence: No Bladder Incontinence: No Neuromuscular (Tone, Coordination, Reflexes) patient has decreased lower extremity coordination observed during ambulation Sensory Vision: Wears Glasses Hearing: Impaired Sensation Right Lower Extremit: Intact Sensation Left Lower Extremity: Intact Sensation Lower Extremities Patient has no complaints of numbness or tingling. Transfers Functional [place] Measure 0=Not Assessed/NA 4=Minimal Assistance 1=Total Assistance 5=Supervision or Setup 2=Maximal Assistance 6=Modified [place] 3=Moderate Assistance 7=Complete [place] Transfers (B, C, W/C) (FIM): 4 Scootin Rollin Supine to/from Sit: 5 Sit to/from Stand: 4 Gait Mode of Locomotion: Walk Anticipated Mode of Locomotion: Walk Gait (FIM): 4 Distance: 150' Gait Level of Assist: 4 Gait Persons Needed: 1 Gait Assistive Device: FWW Comments/Gait Description CGA, patient is unsteady especially when turning but he had no LOB Balance Sitting Static: Normal Sitting Dynamic: Normal Standing Static: Fair Standing Dynamic: Fair Treatment seated exercises x15 (AP, LAQ) Assessment/Needs Patient has impaired mobility, strength, endurance, balance. Rehab Potential: Fair PT Short Term Goals Short Term Goals Time Frame: May 09, 2017 Transfers (B,C,W/C) (FIM): 5 Gait (FIM): 5 Gait Distance Comment: 200' Gait Level of Assist: 5 Gait Assistive Device: FWW PT Plan Problem List Problem List: Activity Tolerance, Functional Strength, Safety, Balance, Gait, Transfer, Bed Mobility Treatment/Plan Treatment Plan: Continue Plan of Care Treatment Plan: Bed Mobility, Education, Functional Activity Gurmeet, Functional Strength, Gait, Safety, Therapeutic Exercise, Transfers Treatment Duration: May 09, 2017 Frequency: 6 times per week Estimated Hrs Per Day: .25 hour per day (15-30') Patient and/or Family Agrees t: Yes Safety Risks/Education Patient Education: Gait Training, Transfer Techniques, Correct Positioning, Safety Issues Teaching Recipient: Patient Teaching Methods: Demonstration, Discussion Response to Teaching: Reinforcement Needed Discharge Recommendations Plan Patient will perform bed mobility and transfer training, balance and endurance training, functional strengthening, stair training, gait training, and education , to improve functional mobility and independence at home. Therapy D/C Recommendations: Home w/ Family Support Time/GCodes Time In: 1145 Time Out: 1200 Total Billed Treatment Time: 15 Total Billed Treatment 1 visit [facility] 15' DA MOJICA PT May 02, 2017 13:17
--- NOTE | 2017-05-02 13:47 | Oncology Progress Note ---
Subjective Time Seen by Provider: 13:00 Subjective/Events-last exam Constipation Back pain when he moves. Legs weak Day 2 radiation. Data Review Labs Laboratory Tests 04/29/17 14:03: Red Blood Count 4.25L, Neutrophils (%) (Auto) 76H, Sodium Level 134L, Calcium Level 10.2H, Alkaline Phosphatase 186H 04/29/17 15:45: Urine Specific [place] 1.010L, Urine Protein 1+H, Urine Ketones 1+H Physical Exam Vital Signs Vital Sign - Last 12Hours 04/29/17 04/29/17 14:17 17:46 Temp 98.9 Pulse 66 Resp 16 B/P (MAP) 192/103 Pulse Ox 95 O2 Delivery Room Air Capillary Refill : NONELess Than 3 Seconds General Appearance: No Apparent Distress HEENT: PERRL/EOMI Neck: Non Tender, Supple Respiratory: Lungs Clear, No Accessory Muscle Use, No Respiratory Distress Cardiovascular: Regular Rate, Rhythm, No Edema, No JVD Gastrointestinal: Non Tender, Soft Extremity: Non Tender, No Calf Tenderness, No Pedal Edema Neurologic/Psychiatric: Alert, Oriented x3 Impression & Plan Impression & Plan IMP: 1. Adenocarcinoma of the colon, s/p neoadjuvant chemoradiation (Xeloda) 2012, now recurrence with multiple mets in the lung, live and bone. 2. Pathological fractures T3, T12/L1/L2 and mild cord compression with symptoms of pain and weakness of lower extremities. He had his first radiation treatment today. 3. Bilateral lower extremities weakness and unsteady gait. Not able to walk and not able to go home even though patient wants to go home 4. Pt is not interested in chemotherapy at this point but OK for radiation. 5. H/o L1 compression fracture due to injury over 10 years ago. 6. Constipation Plan: 1. Continue Decadron 4mg q 6hrs for one more day then change to PO. 2. IV Fentanyl pain control. Once constipation resolves, will change to oral morphine 3. Continue radiation treatment, planned for 10 doses. 4. Pepcid while on the steroid. 5. Milk magnesium and MiraLax. Increasing hydration. 6. Physical therapy evaluation. 7. Stay in-pt at least to next Sunday. Then re-evaluation Clinical Quality Measures DVT/VTE Risk/Contraindication: Risk Factor Score Per Nursin RFS Level Per Nursing on Admit: 4+=Very High TAHMINA WILKES MD May 02, 2017 13:47
[2017-05-02 16:00] VITALS: BP 166/95
[2017-05-02 19:41] VITALS: BP 161/85
[2017-05-02] MEDS: POLYETHYLENE GLYCOL 17 GM (MIRALAX) PACK PO SCH (20:03)
[2017-05-03] MEDS: DEXAMETHASONE 4 MG/ML SDV (DECADRON) IV SCH ×4 (00:25→12:52)
[2017-05-03 00:50] VITALS: BP 158/79
[2017-05-03 04:20] VITALS: BP 146/81
[2017-05-03] MEDS: NS IV 1000 ML 1,000 ML IV SCH ×4 (04:44→21:45)
[2017-05-03] MEDS: CATHETER FLUSH 10 ML SYR IV SCH ×3 (05:26→20:24)
[2017-05-03 08:00] VITALS: BP 177/87
[2017-05-03] MEDS: fentaNYL INJECTION 100 MCG/2 ML AMP IVP PRN ×2 (08:30→12:53)
[2017-05-03] MEDS: FAMOTIDINE 20 MG (PEPCID) TABLET PO SCH ×2 (08:30→20:21)
[2017-05-03] MEDS ORDERED: BISACODYL 10 MG SUPP (DULCOLAX) PR NR (10:35)
[2017-05-03] MEDS ORDERED: FLEET ENEMA ADULT 1 EA BTL PR NR (10:35)
--- NOTE | 2017-05-03 11:03 | Physical Therapy Daily Note ---
PT Daily Note-Current Subjective Patient is supine in bed upon PT entering the room. Significant other is present. He states he has concern about the unsteadiness in primarily his left LE. He agrees to PT. Pain Numeric Pain Scale: 0-No Pain Location: No Pain Reported Comment: notes buckling of L LE during gait Appearance Patient appears generally healthy. He is left post tx supine in bed with call light nearby. Mental Status Patient Orientation: Person, Place, Time, Situation Attachments: IV Transfers Functional [place] Measure 0=Not Assessed/NA 4=Minimal Assistance 1=Total Assistance 5=Supervision or Setup 2=Maximal Assistance 6=Modified [place] 3=Moderate Assistance 7=Complete IndependenceIRFPAI Quality Coding Scale 6 Independent with activity with or without an assistive device 5 Patient requires set up or clean up by helper. Patient completes activity by themselves 4 Supervision or touching assist (CGA). [place] provide cues , steadying assist 3 The helper provides less than half the effort to complete the activity 2 The helper provides more than half the effort to complete the activity 1 Dependent. The helper does all the effort to complete an activity 7 Patient refused to complete or attempt activity 9 The patient did not perform the activity before the current illness or injury 88 Not attempted due to Medical conditions or safety concerns Transfers (B, C, W/C) (FIM): 5 Scootin Rollin Supine to/from Sit: 5 Sit to/from Stand: 5 Patient is SBA for all observed transfers. Weight Bearing Right Lower Extremity: Right Full Weight Bearing Left Lower Extremity: Left Full Weight Bearing Gait Training Gait (FIM): 4 Distance: 250' Gait Level of Assist: 4 Gait Persons Needed: 1 Gait Assistive Device: FWW PT is CGA with this patient for safety due to patient reporting the L LE " giving out" with gait sometimes. He walks with reciprocal gait pattern with noted unsteadiness. He bears some weight through the FWW due to insecurity. Assessment Current Status: Good Progress Patient is able to tolerate ambulation in therapeutic intervention very well. His only primary limitation is insecurities with gait. PT will progress interventions to improve LE function. PT Short Term Goals Short Term Goals Time Frame: May 09, 2017 Transfers (B,C,W/C) (FIM): 5 Gait (FIM): 5 Gait Distance Comment: 200' Gait Level of Assist: 5 Gait Assistive Device: FWW PT Plan Problem List Problem List: Activity Tolerance, Functional Strength, Safety, Balance, Gait Treatment/Plan Treatment Plan: Continue Plan of Care Treatment Plan: Bed Mobility, Education, Functional Activity Gurmeet, Functional Strength, Gait, Safety, Therapeutic Exercise, Transfers Treatment Duration: May 09, 2017 Frequency: 6 times per week Estimated Hrs Per Day: .25 hour per day (15-30') Patient and/or Family Agrees t: Yes Time/GCodes Time In: 1039 Time Out: 1054 Total Billed Treatment Time: 15 Total Billed Treatment 1 visit [facility] 15 min TALIA RANKIN PT May 03, 2017 11:03
--- NOTE | 2017-05-03 11:28 | Progress Note-Hospitalist ---
Progress Note HPI/CC on Admission The patient is a 67-year-old white male who presented to the emergency room last night with complaints of back pain and bilateral leg weakness. He is very hard of hearing and may be slightly confused. He was found to have colon cancer approximate 4 years ago. He was treated with radiation chemotherapy and surgical resection. His reports that for some time he has reported mild back pain. Over the last 2 weeks this has gotten worse. Ultimately it week ago or so he was getting an artificial [place] tree down from the loft in the garage. Although his daughter had protested she would help he took it upon himself. The box was not particularly heavy but rather unwieldy and his pain increased. Over the last several days he has been having more and more trouble with back pain and difficulty walking. He was brought by family to be more confused yesterday. He apparently has experienced poor appetite and a recent weight loss which may be as much as 20 pounds over the last month. In the emergency room studies were done which showed extensive metastatic disease both pulmonary and multifocal in the spine. In addition there was evidence of vertebral compression fractures and possible cord compression at T3 and L1. Progress Notes/Assess & Plan Date Seen 05/03/17 Time Seen by Provider: 11:00 Diagonsis/Assessment & Plan Patient Interview: Pt was visited by a family member Pt confirms having radiation treatment this am. Pt states this was quick Physical exam stable The pain pill suggested by Dr. Villanueva was discussed for before radiation treatment. Pt's family member discussed the Fentanyl shots he was getting and wondered if PO would be as effective as quickly; she was assured that the oral medication would be effective if taken 30 minutes prior to radiation. Pt deneis BMs. Pt states it has been 4 days. Pt's family member discussed his resection and is issues with pushing. Pt was assured that he can push a little, but not too much. I informed the pt that I ordered a suppository and a fleets enema AFVSS, Pleasant, chronically ill RRR, CTAB No edema Assessment: Colon cancer with mets to spine Severe constipation Radiation colitis Plan: Switch to PO pain meds prior to radiation treatment once constipation resolves Suppository, Fleets Enema Scribed by Alexandra Evans under direct supervision of Dr. Karli Reyes. KARLI REYES DO May 03, 2017 11:28
[2017-05-03 12:00] VITALS: BP 162/87
--- NOTE | 2017-05-03 14:52 | Oncology Progress Note ---
Subjective Time Seen by Provider: 15:30 Subjective/Events-last exam Day 3 radiation. Had 2 bowel movements after fleet enema today. Feeling better and able to eat better. Still leg weak and unsteady gait, on physical therapy. Physical Exam Vital Signs Vital Sign - Last 12Hours 04/29/17 04/29/17 14:17 17:46 Temp 98.9 Pulse 66 Resp 16 B/P (MAP) 192/103 Pulse Ox 95 O2 Delivery Room Air Capillary Refill : NONELess Than 3 Seconds General Appearance: No Apparent Distress HEENT: PERRL/EOMI Neck: Non Tender, Supple Respiratory: Lungs Clear, No Accessory Muscle Use, No Respiratory Distress Cardiovascular: Regular Rate, Rhythm Gastrointestinal: Non Tender, Soft Extremity: Non Tender, No Calf Tenderness, No Pedal Edema Neurologic/Psychiatric: Alert, Oriented x3 Impression & Plan Impression & Plan IMP: 1. Adenocarcinoma of the colon, s/p neoadjuvant chemoradiation (Xeloda) 2012, now recurrence with multiple mets in the lung, live and bone. 2. Pathological fractures T3, T12/L1/L2 and mild cord compression with symptoms of pain and weakness of lower extremities. He is on radiation treatment and IV steroid. 3. Bilateral lower extremities weakness and unsteady gait. Not able to walk and not able to go home even though patient wants to go home 4. Pt is not interested in chemotherapy at this point but OK for radiation. 5. H/o L1 compression fracture due to injury over 10 years ago. 6. Constipation Plan: 1. Change Decadron 4mg q 6hrs to PO. 2. IV Fentanyl pain control, PRN. Start oral morphine MS Contin 15mg bid with hydrocodone break through 3. Continue radiation treatment, planned for 10 doses. 4. Pepcid while on the steroid. 5. Milk magnesium and MiraLax and hydration. 6. Physical therapy. 7. Stay in-pt at least to next Sunday. Then re-evaluation Clinical Quality Measures DVT/VTE Risk/Contraindication: Risk Factor Score Per Nursin RFS Level Per Nursing on Admit: 4+=Very High TAHMINA WILKES MD May 03, 2017 14:52
[2017-05-03 16:28] VITALS: BP 171/85
[2017-05-03] MEDS ORDERED: DEXAMETHASONE 4 MG TAB (DECADRON) PO SCH (16:30)
[2017-05-03] MEDS: HYDROcodone/APAP 7.5 MG/325 MG (LORTAB, LORCET PLUS) TABLET PO PRN (16:40)
[2017-05-03 19:44] VITALS: BP 168/81
[2017-05-03] MEDS: POLYETHYLENE GLYCOL 17 GM (MIRALAX) PACK PO SCH (20:21)
[2017-05-03] MEDS: DEXAMETHASONE 4 MG TAB (DECADRON) PO SCH (20:22)
[2017-05-03] MEDS: morphine ER 15 MG (MS CONTIN) TAB PO SCH (20:22)
[2017-05-04] VITALS: BP 171/81
[2017-05-04] MEDS: DEXAMETHASONE 4 MG TAB (DECADRON) PO SCH ×3 (04:32→20:18)
[2017-05-04] MEDS: CATHETER FLUSH 10 ML SYR IV SCH ×3 (04:47→22:09)
[2017-05-04] MEDS: NS IV 1000 ML 1,000 ML IV SCH ×3 (05:57→19:32)
[2017-05-04 08:00] VITALS: BP 134/98
[2017-05-04] MEDS: morphine ER 15 MG (MS CONTIN) TAB PO SCH ×2 (08:38→20:18)
[2017-05-04] MEDS: FAMOTIDINE 20 MG (PEPCID) TABLET PO SCH ×2 (08:56→20:18)
[2017-05-04] MEDS: fentaNYL INJECTION 100 MCG/2 ML AMP IVP PRN ×3 (09:43→22:09)
--- NOTE | 2017-05-04 11:09 | Oncology Progress Note ---
Subjective Time Seen by Provider: 10:00 Subjective/Events-last exam I changed IV pain meds to oral yesterday in preparing patient to go home Sunday. I was called by radiation nurse this morning to see patient that he was in tremendous pain while moved onto the radiation table. "My pain was 30 not 10." Pt got oral morphine before going to the radiation. Family and patient do not feel that they can go home on Sunday. They can not transport patient here every day in and out of the car for one more week of radiation for pathological fracture and cord compression. We gave him a dose of IV Fentanyl and his pain was much relieved and he was able to stand up with the walker and ready for physical therapy. He had 2 large bowel movement yesterday after fleet enema treatment and had a large hamburg last night. "It tasted so good." Physical Exam Vital Signs Vital Sign - Last 12Hours 04/29/17 04/29/17 14:17 17:46 Temp 98.9 Pulse 66 Resp 16 B/P (MAP) 192/103 Pulse Ox 95 O2 Delivery Room Air Capillary Refill : NONELess Than 3 Seconds General Appearance: No Apparent Distress HEENT: PERRL/EOMI Neck: Non Tender, Supple Respiratory: Lungs Clear, No Accessory Muscle Use, No Respiratory Distress Cardiovascular: Regular Rate, Rhythm, No JVD, No Murmur Gastrointestinal: Non Tender, Soft Extremity: Non Tender, No Calf Tenderness, No Pedal Edema Neurologic/Psychiatric: Alert, Oriented x3 Impression & Plan Impression & Plan IMP: 1. Adenocarcinoma of the colon, s/p neoadjuvant chemoradiation (Xeloda) 2012, now recurrence with multiple mets in the lung, live and bone. 2. Pathological fractures T3, T12/L1/L2 and mild cord compression with symptoms of pain and weakness of lower extremities. He is on radiation treatment and PO steroid. Pt still needs IV pain meds before going to radiation treatment. 3. Bilateral lower extremities weakness and unsteady gait. Not able to walk and not able to go home even though patient wants to go home 4. Pt is not interested in chemotherapy at this point but OK for radiation. 5. H/o L1 compression fracture due to injury over 10 years ago. 6. Constipation Plan: 1. Continue Decadron 4mg q 6hrs to PO through the weekend. 2. IV Fentanyl pain control before radiation treatment. Keep on oral morphine MS Contin 15mg bid with hydrocodone break through. 3. Continue radiation treatment, planned for 10 doses. He is at 4/10 treatment as of today. 4. Pepcid while on the steroid. 5. Milk magnesium and MiraLax and hydration. Fleet enema PRN 6. Physical therapy after the pain medication. 7. Swing bed evaluation for daily radiation and IV pain medication before the radiation. Family is not able to transport patient from home to cancer center for daily radiation treatment. Clinical Quality Measures DVT/VTE Risk/Contraindication: Risk Factor Score Per Nursin RFS Level Per Nursing on Admit: 4+=Very High TAHMINA WILKES MD May 04, 2017 11:08
--- NOTE | 2017-05-04 11:40 | Progress Note-Hospitalist ---
Progress Note HPI/CC on Admission The patient is a 67-year-old white male who presented to the emergency room last night with complaints of back pain and bilateral leg weakness. He is very hard of hearing and may be slightly confused. He was found to have colon cancer approximate 4 years ago. He was treated with radiation chemotherapy and surgical resection. His reports that for some time he has reported mild back pain. Over the last 2 weeks this has gotten worse. Ultimately it week ago or so he was getting an artificial [place] tree down from the loft in the garage. Although his daughter had protested she would help he took it upon himself. The box was not particularly heavy but rather unwieldy and his pain increased. Over the last several days he has been having more and more trouble with back pain and difficulty walking. He was brought by family to be more confused yesterday. He apparently has experienced poor appetite and a recent weight loss which may be as much as 20 pounds over the last month. In the emergency room studies were done which showed extensive metastatic disease both pulmonary and multifocal in the spine. In addition there was evidence of vertebral compression fractures and possible cord compression at T3 and L1. Progress Notes/Assess & Plan Date Seen 05/04/17 Time Seen by Provider: 12:40 Diagonsis/Assessment & Plan Dr. Villanueva Review: Pt did not tolerate the switch to po pain meds Dr. Villanueva thinks it would be much easier to swing pt Sunday and radiation treatment to end next Sunday Pt's bowels are moving since supp AFVSS, [place], chronically ill RRR, CTAB No edema Assessment: Colon cancer with mets to spine Severe constipation s/p resolution Radiation colitis Plan: Switch to PO pain meds prior to radiation treatment once constipation resolves? Suppository, Fleets Enema prn Scribed by Alexandra Evans under direct supervision of Dr. Karli Reyes. KARLI REYES DO May 04, 2017 11:40
[2017-05-04] MEDS: ONDANSETRON 4 MG/2 ML (SDV) Z0FRAN IVP PRN (12:16)
--- NOTE | 2017-05-04 14:02 | Physical Therapy Daily Note ---
PT Daily Note-Current Subjective Patient states he has had a rough day today. He reports a misunderstanding with his pain medication before his radiation treatment this morning, which caused him to be in a lot of pain before, during, and after radiation. He states he is not going to be able to walk on this date. He agrees to therapeutic intervention in the bed. Pain Numeric Pain Scale: 10-Worst Possible Pain Location Body Site: Back Appearance Patient appears generally healthy. He is left post tx with family member and call light in reach. Mental Status Patient Orientation: Normal For Age Attachments: IV Transfers Functional [place] Measure 0=Not Assessed/NA 4=Minimal Assistance 1=Total Assistance 5=Supervision or Setup 2=Maximal Assistance 6=Modified [place] 3=Moderate Assistance 7=Complete IndependenceIRFPAI Quality Coding Scale 6 Independent with activity with or without an assistive device 5 Patient requires set up or clean up by helper. Patient completes activity by themselves 4 Supervision or touching assist (CGA). [place] provide cues , steadying assist 3 The helper provides less than half the effort to complete the activity 2 The helper provides more than half the effort to complete the activity 1 Dependent. The helper does all the effort to complete an activity 7 Patient refused to complete or attempt activity 9 The patient did not perform the activity before the current illness or injury 88 Not attempted due to Medical conditions or safety concerns Transfers not observed on this visit due to reported pain levels of patient. Weight Bearing Right Lower Extremity: Right Full Weight Bearing Left Lower Extremity: Left Full Weight Bearing Gait Training N/A Exercises Supine Ex: Heel Slides, Short Arc Quads, Straight leg raise Supine Reps: 15 exercises performed bilaterally Assessment Current Status: Fair Progress Patient is in extreme pain from previous treatment on this date. PT will address gait, muscular strength, and endurance per his compliance with future visits. PT Short Term Goals Short Term Goals Time Frame: May 09, 2017 Transfers (B,C,W/C) (FIM): 5 Gait (FIM): 5 Gait Distance Comment: 200' Gait Level of Assist: 5 Gait Assistive Device: FWW PT Plan Problem List Problem List: Activity Tolerance, Functional Strength, Safety, Balance, Gait Treatment/Plan Treatment Plan: Continue Plan of Care Treatment Plan: Bed Mobility, Education, Functional Activity Gurmeet, Functional Strength, Gait, Safety, Therapeutic Exercise, Transfers Treatment Duration: May 09, 2017 Frequency: 6 times per week Estimated Hrs Per Day: .25 hour per day (15-30') Patient and/or Family Agrees t: Yes Time/GCodes Time In: 1324 Time Out: 1344 Total Billed Treatment Time: 20 Total Billed Treatment 1 visit EX 20 min TALIA RANKIN PT May 04, 2017 14:02
[2017-05-04 16:27] VITALS: BP 161/83
[2017-05-04] MEDS: POLYETHYLENE GLYCOL 17 GM (MIRALAX) PACK PO SCH (20:18)
[2017-05-05] VITALS: BP 146/77
[2017-05-05] MEDS: fentaNYL INJECTION 100 MCG/2 ML AMP IVP PRN ×11 (01:10→22:33)
[2017-05-05] MEDS: DEXAMETHASONE 4 MG TAB (DECADRON) PO SCH ×3 (03:31→20:33)
[2017-05-05] MEDS: CATHETER FLUSH 10 ML SYR IV SCH ×3 (05:36→22:31)
[2017-05-05] MEDS: HYDROcodone/APAP 7.5 MG/325 MG (LORTAB, LORCET PLUS) TABLET PO PRN (07:53)
[2017-05-05] MEDS: FAMOTIDINE 20 MG (PEPCID) TABLET PO SCH ×2 (07:53→20:33)
[2017-05-05] MEDS: morphine ER 15 MG (MS CONTIN) TAB PO SCH ×3 (07:54→20:34)
[2017-05-05 08:00] VITALS: BP 159/77
[2017-05-05] MEDS: NS IV 1000 ML 1,000 ML IV SCH ×2 (10:16→16:08)
[2017-05-05] MEDS: MILK OF MAGNESIA 400 MG/5 ML 30 ML UDC PO PRN ×2 (11:08→20:33)
--- NOTE | 2017-05-05 12:18 | Physical Therapy Daily Note ---
PT Daily Note-Current Subjective Pain rated 0/10 at this current time. Pt reports pain has been very bad and is just now under control. Pt declines out of bed but agrees to ther ex in bed. present and supportive. Mental Status Patient Orientation: Person, Place, Situation Transfers Functional [place] Measure 0=Not Assessed/NA 4=Minimal Assistance 1=Total Assistance 5=Supervision or Setup 2=Maximal Assistance 6=Modified [place] 3=Moderate Assistance 7=Complete IndependenceIRFPAI Quality Coding Scale 6 Independent with activity with or without an assistive device 5 Patient requires set up or clean up by helper. Patient completes activity by themselves 4 Supervision or touching assist (CGA). [place] provide cues , steadying assist 3 The helper provides less than half the effort to complete the activity 2 The helper provides more than half the effort to complete the activity 1 Dependent. The helper does all the effort to complete an activity 7 Patient refused to complete or attempt activity 9 The patient did not perform the activity before the current illness or injury 88 Not attempted due to Medical conditions or safety concerns Weight Bearing Right Lower Extremity: Right Full Weight Bearing Left Lower Extremity: Left Full Weight Bearing Exercises Supine Ex: Ankle pumps, Quad Set, Glut sets, Heel Slides, Short Arc Quads Supine Reps: 30 Assessment Current Status: Fair Progress Pt comfortable at this time so opted to do bed exercise only. Pt denied any increase in pain during treatment. Good performance with bed exercises. All needs met at this time. Call light in reach. PT Short Term Goals Short Term Goals Time Frame: May 09, 2017 Transfers (B,C,W/C) (FIM): 5 Gait (FIM): 5 Gait Distance Comment: 200' Gait Level of Assist: 5 Gait Assistive Device: FWW PT Plan Treatment/Plan Treatment Plan: Continue Plan of Care Treatment Plan: Bed Mobility, Education, Functional Activity [place], Functional Strength, Gait, Safety, Therapeutic Exercise, Transfers Treatment Duration: May 09, 2017 Frequency: 6 times per week Estimated Hrs Per Day: .25 hour per day (15-30') Patient and/or Family Agrees t: Yes Time/GCodes Time In: 1105 Time Out: 1130 Total Billed Treatment Time: 25 Total Billed Treatment 1, ther ex 25 min [place] ARVIZU CPTA May 05, 2017 12:18
--- NOTE | 2017-05-05 12:59 | Progress Note-Hospitalist ---
Progress Note HPI/CC on Admission The patient is a 67-year-old white male who presented to the emergency room last night with complaints of back pain and bilateral leg weakness. He is very hard of hearing and may be slightly confused. He was found to have colon cancer approximate 4 years ago. He was treated with radiation chemotherapy and surgical resection. His reports that for some time he has reported mild back pain. Over the last 2 weeks this has gotten worse. Ultimately it week ago or so he was getting an artificial [place] tree down from the loft in the garage. Although his daughter had protested she would help he took it upon himself. The box was not particularly heavy but rather unwieldy and his pain increased. Over the last several days he has been having more and more trouble with back pain and difficulty walking. He was brought by family to be more confused yesterday. He apparently has experienced poor appetite and a recent weight loss which may be as much as 20 pounds over the last month. In the emergency room studies were done which showed extensive metastatic disease both pulmonary and multifocal in the spine. In addition there was evidence of vertebral compression fractures and possible cord compression at T3 and L1. 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
[2017-05-05 16:32] VITALS: BP 152/84
[2017-05-05] MEDS: IBUPROFEN TABLET 200 MG TAB PO PRN (19:05)
[2017-05-05 20:21] VITALS: BP 166/70
[2017-05-05] MEDS: POLYETHYLENE GLYCOL 17 GM (MIRALAX) PACK PO SCH (20:33)
[2017-05-06] VITALS: BP 157/81
[2017-05-06] MEDS: fentaNYL INJECTION 100 MCG/2 ML AMP IVP PRN ×10 (02:20→22:56)
[2017-05-06] MEDS: DEXAMETHASONE 4 MG TAB (DECADRON) PO SCH ×3 (04:19→20:47)
[2017-05-06] MEDS: NS IV 1000 ML 1,000 ML IV SCH ×3 (05:08→22:00)
[2017-05-06] MEDS: CATHETER FLUSH 10 ML SYR IV SCH ×3 (05:14→22:03)
[2017-05-06] MEDS: IBUPROFEN TABLET 200 MG TAB PO PRN ×3 (07:46→23:53)
[2017-05-06] MEDS ORDERED: fentaNYL INJECTION 100 MCG/2 ML AMP IVP STA (07:52)
[2017-05-06 08:00] VITALS: BP 166/87
[2017-05-06] MEDS: morphine ER 15 MG (MS CONTIN) TAB PO SCH ×2 (08:12→20:48)
[2017-05-06] MEDS: FAMOTIDINE 20 MG (PEPCID) TABLET PO SCH ×2 (08:20→20:47)
[2017-05-06] MEDS: MILK OF MAGNESIA 400 MG/5 ML 30 ML UDC PO PRN (10:15)
--- NOTE | 2017-05-06 11:37 | Progress Note-Hospitalist ---
Progress Note HPI/CC on Admission The patient is a 67-year-old white male who presented to the emergency room last night with complaints of back pain and bilateral leg weakness. He is very hard of hearing and may be slightly confused. He was found to have colon cancer approximate 4 years ago. He was treated with radiation chemotherapy and surgical resection. His reports that for some time he has reported mild back pain. Over the last 2 weeks this has gotten worse. Ultimately it week ago or so he was getting an artificial [place] tree down from the loft in the garage. Although his daughter had protested she would help he took it upon himself. The box was not particularly heavy but rather unwieldy and his pain increased. Over the last several days he has been having more and more trouble with back pain and difficulty walking. He was brought by family to be more confused yesterday. He apparently has experienced poor appetite and a recent weight loss which may be as much as 20 pounds over the last month. In the emergency room studies were done which showed extensive metastatic disease both pulmonary and multifocal in the spine. In addition there was evidence of vertebral compression fractures and possible cord compression at T3 and L1. Progress Notes/Assess & Plan Date Seen 05/06/17 Time Seen by Provider: 11:15 Diagonsis/Assessment & Plan Spent 15 minutes in room listening to his 's concerns about nursing staff deficiencies and pain med issues and bowel issues and that fact that she is "freaking out" thinking the worsened back pain indicates the spread of this aggressive tumor. Very difficult situation since they have terminated multiple nurses, housekeepers, physicians and many other senior support analyst for unknown reasons other than dissatisfied with small issues. I tried to be supportive but the conversation could have gone on for many hours as fast as the complaints were reported along with multiple lists of medication requests and so forth. Very difficult issues because it is apparent that the cancer is very aggressive and likely spreading considering the increased pain he is experiencing in different parts of his back and I told them that is was likely spreading. Pt and family wants to stat in hospital here for a "few more weeks" which will be difficult given insurance regulations and coverage. 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
[2017-05-06] MEDS: BISACODYL 10 MG SUPP (DULCOLAX) PR SCH (12:08)
[2017-05-06] MEDS: DOCUSATE SODIUM 100 MG (COLACE) CAP PO SCH ×2 (12:08→20:47)
[2017-05-06 15:33] VITALS: BP 154/76
[2017-05-06] MEDS: POLYETHYLENE GLYCOL 17 GM (MIRALAX) PACK PO SCH (20:48)
[2017-05-07] MEDS: fentaNYL INJECTION 100 MCG/2 ML AMP IVP PRN ×4 (00:46→14:17)
[2017-05-07 00:50] VITALS: BP 160/78
[2017-05-07] MEDS: HYDROmorphone (DILAUDID) 2 MG/ML VIAL IVP PRN ×5 (00:57→10:05)
[2017-05-07] MEDS: ACETAMINOPHEN 500 MG TAB (TYLENOL) PO PRN (03:58)
[2017-05-07] MEDS: DEXAMETHASONE 4 MG TAB (DECADRON) PO SCH ×2 (03:58→12:19)
[2017-05-07] MEDS: CATHETER FLUSH 10 ML SYR IV SCH ×2 (06:30→14:17)
[2017-05-07 08:00] VITALS: BP_SYST 166; BP_SYST 169; BP_DIAS 86; BP_DIAS 87
[2017-05-07] MEDS: morphine ER 15 MG (MS CONTIN) TAB PO SCH (08:25)
[2017-05-07] MEDS: BISACODYL 10 MG SUPP (DULCOLAX) PR SCH (08:25)
[2017-05-07] MEDS: FAMOTIDINE 20 MG (PEPCID) TABLET PO SCH (08:31)
[2017-05-07] MEDS: DOCUSATE SODIUM 100 MG (COLACE) CAP PO SCH (08:31)
--- NOTE | 2017-05-07 10:10 | Physical Therapy Progress Note ---
Therapy Progress Note Patient refused PT this morning stating he is still in extreme pain and had some severe acute pain episodes over the weekend. He also states he just returned from treatment. PT will visit with him again this p.m. 1 visit ref TALIA RANKIN PT May 07, 2017 10:10
[2017-05-07] MEDS: IBUPROFEN TABLET 200 MG TAB PO PRN (10:11)
[2017-05-07] MEDS: NS IV 1000 ML 1,000 ML IV SCH (11:16)
[2017-05-07] MEDS ORDERED: fentaNYL PATCH 50 MCG (DURAGESIC) TD SCH (12:15)
--- NOTE | 2017-05-07 13:02 | Progress Note-Hospitalist ---
Subjective HPI/CC On Admission Date Seen by Provider: May 07, 2017 Time Seen by Provider: 11:15 The patient is a 67-year-old white male who presented to the emergency room last night with complaints of back pain and bilateral leg weakness. He is very hard of hearing and may be slightly confused. He was found to have colon cancer approximate 4 years ago. He was treated with radiation chemotherapy and surgical resection. His reports that for some time he has reported mild back pain. Over the last 2 weeks this has gotten worse. Ultimately it week ago or so he was getting an artificial [place] tree down from the loft in the garage. Although his daughter had protested she would help he took it upon himself. The box was not particularly heavy but rather unwieldy and his pain increased. Over the last several days he has been having more and more trouble with back pain and difficulty walking. He was brought by family to be more confused yesterday. He apparently has experienced poor appetite and a recent weight loss which may be as much as 20 pounds over the last month. In the emergency room studies were done which showed extensive metastatic disease both pulmonary and multifocal in the spine. In addition there was evidence of vertebral compression fractures and possible cord compression at T3 and L1. Subjective/Events-last exam Has been having recurrent pain in back. Come son very quickly and is very severe in mid back. Unable to describe. at bedside and concerned this is progression of tumor. Fentanyl has been helping but wearing off too quickly. Dilaudid helps too but does not last long enough. Objective Exam Vital Signs Vital Sign - Last 12Hours 05/01/17 00:07 Temp 98.0 Pulse 51 Resp 17 B/P (MAP) 154/82 Pulse Ox 96 O2 Delivery Room Air Capillary Refill : NONELess Than 3 Seconds General Appearance: No Apparent Distress, WD/WN Respiratory: Lungs Clear, No Respiratory Distress Cardiovascular: Regular Rate, Rhythm, No Murmur Gastrointestinal: Normal Bowel Sounds, Non Tender, Soft Extremity: Non Tender, No Calf Tenderness Neurologic/Psychiatric: Alert, Oriented x3 Assessment/Plan Assessment and Plan Assess & Plan/Chief Complaint metastatic cancer Diagnosis/Problems Diagnosis/Problems (1) Intractable pain Status: Acute Assessment & Plan: Back pain likely due to metastatic disease Will switch to Fentanyl patch Will keep current fentanyl dose as working better for pain control Consider DIRECTOR LIFE if needed Unable to tolerate oral morphine or hydrocodone Could consider methadone Over 90minutes of time spent face to face discussing plan of care with patient, , and daughter and treatment options. 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
[2017-05-07] MEDS: ONDANSETRON 4 MG/2 ML (SDV) Z0FRAN IVP PRN (13:04)
--- NOTE | 2017-05-07 14:02 | Physical Therapy Progress Note ---
Therapy Progress Note Patient refused therapy this p.m. stating extreme pain and family reports there is a possible change in status of metastases of cancer. PT will check with patient tomorrow. 1 visit Patient refusal TALIA RANKIN PT May 07, 2017 14:02
[2017-05-07] MEDS ORDERED: carBAMazepine 200 MG (TEGretol) TAB PO SCH (21:00)
== END 2017-05-07 14:25 | disposition swing bed (61) | DRG 543 ==
LOC: EDUNIT# 14:05 → ER 14:06 → EEVIPCON 14:06 → 4TH 16:36
PROVIDERS: ADMIT Family Medicine; ATTEND Family Medicine
DX: C79.51 Secondary malignant neoplasm of bone (principal); C78.01 Secondary malignant neoplasm of right lung; C78.02 Secondary malignant neoplasm of left lung; M84.58XA Pathological fracture in neoplastic disease, other specified site, initial encounter for fracture; G99.2 Myelopathy in diseases classified elsewhere; C18.9 Malignant neoplasm of colon, unspecified; C78.7 Secondary malignant neoplasm of liver and intrahepatic bile duct; K52.0 Gastroenteritis and colitis due to radiation; H91.90 Unspecified hearing loss, unspecified ear; Z92.21 Personal history of antineoplastic chemotherapy; Z92.3 Personal history of irradiation; Z87.891 Personal history of nicotine dependence; Z86.718 Personal history of other venous thrombosis and embolism; Z87.820 Personal history of traumatic brain injury
CPT/HCPCS: 36415; 70450; 71260; 72129; 72132; 72156; 72157; 72158; 74177; 77290; 77295; 77300; 77334; 77417; 80053; 81000; 85025; 85610; 96360

== ENCOUNTER 2017-05-07 09:50 | Inpatient (IN) | payer BC, MEDICARE ==
[~2017-05-07] VITALS: Ht 180.3 cm; Wt 93.5 kg
[~2017-05-07 09:50] MED LIST changes: +ACET325T49 PO; +CARB200T PO; +IBUP-2055 PO
[2017-05-07] MEDS ORDERED: MILK OF MAGNESIA 400 MG/5 ML 30 ML UDC PO PRN (14:45)
[2017-05-07] MEDS ORDERED: IBUPROFEN TABLET 200 MG TAB PO PRN ×2 (14:45→16:45)
[2017-05-07] MEDS ORDERED: ONDANSETRON 4 MG/2 ML (SDV) Z0FRAN IVP PRN (14:45)
[2017-05-07] MEDS ORDERED: CYCLOBENZAPRINE 10 MG (FLEXERIL) TAB PO PRN (14:45)
[2017-05-07] MEDS ORDERED: fentaNYL PATCH 50 MCG (DURAGESIC) TD SCH (14:45)
[2017-05-07] MEDS ORDERED: CATHETER FLUSH 10 ML SYR IV PRN (14:45)
[2017-05-07] MEDS ORDERED: DEXAMETHASONE 4 MG TAB (DECADRON) PO SCH (14:45)
[2017-05-07] MEDS ORDERED: fentaNYL INJECTION 100 MCG/2 ML AMP IVP PRN ×2 (14:45→15:00)
[2017-05-07] MEDS ORDERED: HYDROmorphone (DILAUDID) 2 MG/ML VIAL IVP PRN (14:45)
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
[2017-05-07] MEDS: NS IV 1000 ML 1,000 ML IV SCH ×2 (15:40→23:17)
[2017-05-07] MEDS ORDERED: PATIENT MAY USE OWN MED,SINGLE MED PO SCH (15:45)
[2017-05-07] MEDS ORDERED: INFLUENZA TRIvalent 2017-2018 0.5 ML/45 MCG SYR IM ONE (15:45)
[2017-05-07] MEDS: fentaNYL INJECTION 100 MCG/2 ML AMP IVP PRN ×2 (16:15→18:26)
[2017-05-07 17:08] VITALS: BP 96/58
[2017-05-07] MEDS ORDERED: GADOBUTROL 10 MMOL/10 ML (GADAVIST) VIAL IV ONE (17:30)
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
--- NOTE | 2017-05-07 18:39 | Diagnostic Imaging Report ---
INDICATION: History of colon cancer with increasing back pain. History of brain injury and surgery. TECHNIQUE: Multiplanar and multisequence acquisitions were acquired through the thoracic spine before and after administration of gadolinium. COMPARISON: Comparison made with prior examination from 04/30/2017. FINDINGS: There is diffuse abnormal signal intensity in the T3 vertebral body, suspect for metastatic disease. The abnormal signal intensity extends into the pedicles bilaterally, right greater than left. There is a pathologic compression fracture with retropulsion of the fracture fragments. This results in effacement of the ventral thecal sac and spinal stenosis to approximately 6 mm. Additionally, there is abnormal signal intensity in the T12 and L1 vertebral bodies. There appears to be a pathologic compression of the L1 vertebral body. The abnormal signal at these levels extends posteriorly into the left pedicle of each vertebral body. All of the areas of abnormal signal within the T3, T12, and L1 vertebral bodies demonstrate contrast enhancement. The remaining thoracic vertebral body heights are well maintained. The visualized portions of the spinal cord are grossly normal in signal intensity and morphology apart from questionable mild edema at the level of T3 in the region of spinal stenosis. IMPRESSION: Cord compression at the level of T3 secondary to a pathologic compression fracture presumably due to metastatic disease. There is narrowing of the spinal canal to 6 mm with some mild edema in the cord. Metastatic disease in the T12 and L1 vertebral bodies as well. There appears to be a mild pathologic compression of the L1 vertebral body; however, no retropulsion of fracture fragments. There is involvement of the left pedicles as described. Overall, the findings are relatively stable when compared to the prior examination from 04/30/2017. Dictated by: Dictated on workstation # [id number]
[2017-05-07 20:00] VITALS: BP 123/72
[2017-05-07] MEDS: fentaNYL PCA 300 MCG/30 ML VIAL IV PRN (20:02)
[2017-05-07] MEDS: carBAMazepine 200 MG (TEGretol) TAB PO SCH (20:22)
[2017-05-07] MEDS: POLYETHYLENE GLYCOL 17 GM (MIRALAX) PACK PO SCH (20:23)
[2017-05-07] MEDS: DEXAMETHASONE 4 MG TAB (DECADRON) PO SCH (20:24)
[2017-05-07] MEDS: DOCUSATE SODIUM 100 MG (COLACE) CAP PO SCH (20:24)
[2017-05-07] MEDS: FAMOTIDINE 20 MG (PEPCID) TABLET PO SCH (20:24)
[2017-05-07] MEDS ORDERED: carBAMazepine 200 MG (TEGretol) TAB PO SCH ×2 (21:00)
[2017-05-07] MEDS: CATHETER FLUSH 10 ML SYR IV SCH (22:00)
[2017-05-08] VITALS: BP 110/62
[2017-05-08] MEDS: fentaNYL PCA 300 MCG/30 ML VIAL IV PRN ×5 (00:49→22:23)
[2017-05-08 04:00] VITALS: BP 115/64
[2017-05-08] MEDS: DEXAMETHASONE 4 MG TAB (DECADRON) PO SCH ×2 (04:56→11:33)
[2017-05-08] MEDS: CATHETER FLUSH 10 ML SYR IV SCH ×3 (06:00→22:11)
[2017-05-08 06:20] LABS: BASOPHILS % (AUTO) 0 % (0-10); EOSINOPHILS % (AUTO) 0 % (0-10); LYMPHOCYTES # (AUTO) 0.4 X 10^3 (1.0-4.0); LYMPHOCYTES % (AUTO) 4 % (12-44); MEAN CORPUSCULAR HEMOGLOBIN 32 PG (25-34); MEAN CORPUSCULAR HGB CONC 34 G/DL (32-36); MEAN CORPUSCULAR VOLUME 96 FL (80-99); MEAN PLATELET VOLUME 8.8 FL (7.4-10.4); MONOCYTES # (AUTO) 1.1 X 10^3 (0.0-1.0); MONOCYTES % (AUTO) 12 % (0-12); NEUTROPHILS # (AUTO) 7.7 X 10^3 (1.8-7.8); NEUTROPHILS % (AUTO) 83 % (42-75); PLATELET COUNT 303 10^3/uL (130-400); RED BLOOD COUNT 3.59 10^6/uL (4.35-5.85); RED CELL DISTRIBUTION WIDTH 12.4 % (10.0-14.5); WHITE BLOOD COUNT 9.2 10^3/uL (4.3-11.0)
[2017-05-08 06:44] LABS: ALANINE AMINOTRANSFERASE 91 U/L (0-55); ALBUMIN 3.2 GM/DL (3.2-4.5); ANION GAP 8 MMOL/L (5-14); ASPARTATE AMINO TRANSFERASE 250 U/L (5-34); BILIRUBIN,TOTAL 0.8 MG/DL (0.1-1.0); BLOOD UREA NITROGEN 27 MG/DL (7-18); BUN/CREATININE RATIO 36; CALCIUM 9.1 MG/DL (8.5-10.1); CARBON DIOXIDE 20 MMOL/L (21-32); CHLORIDE 102 MMOL/L (98-107); CREATININE SERUM 0.75 MG/DL (0.60-1.30); GFR ESTIMATED > 60; GLUCOSE 123 MG/DL (70-105); POTASSIUM 5.3 MMOL/L (3.6-5.0); SODIUM 130 MMOL/L (135-145); TOTAL PROTEIN 5.6 GM/DL (6.4-8.2)
[2017-05-08] MEDS: IBUPROFEN TABLET 200 MG TAB PO SCH ×2 (07:43→13:23)
[2017-05-08] MEDS: carBAMazepine 200 MG (TEGretol) TAB PO SCH ×2 (07:44→20:45)
[2017-05-08] MEDS: BISACODYL 10 MG SUPP (DULCOLAX) PR SCH (09:00)
[2017-05-08] MEDS: FAMOTIDINE 20 MG (PEPCID) TABLET PO SCH ×2 (11:33→20:46)
[2017-05-08] MEDS: DOCUSATE SODIUM 100 MG (COLACE) CAP PO SCH ×2 (11:34→20:46)
--- NOTE | 2017-05-08 12:58 | Physical Therapy Evaluation ---
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, cord compression Onset Date: Apr 29, 2017 Therapy Diagnosis Therapy Diagnosis: weakness, balance Height/Weight Height (Feet): 5 Height (Inches): 11.00 Weight (Pounds): 206 Weight (Ounces): 3.0 Precautions Precautions/Isolations: Fall Prevention, Standard Precautions Weight Bear Status Right Lower Extremity: Right Full Weight Bearing Left Lower Extremity: Left Full Weight Bearing Referral Reason for Referral: Evaluation/Treatment Medical History Additional Medical History former smoker, colon CA, DDD, back injury, KIANA, eczema, psoriasis, surg (3 brain surgeries post trauma, abdominal) Social History Home: Multilevel Current Living Status: Spouse Entry Into Home: Stairs Without Railing PT Steps Into Home: 2 Prior/Core FIM Prior Level of Function Functional [place] Measure 0=Not Assessed/NA 4=Minimal Assistance 1=Total Assistance 5=Supervision or Setup 2=Maximal Assistance 6=Modified [place] 3=Moderate Assistance 7=Complete [place] Bed Mobility: 7 Transfers (B,C,W/C) (FIM): 7 Gait: 7 Locomotion: 7 PT Evaluation-Current Subjective Patient states that his pain has improved today compared to the last two days. He reports he was able to sleep completely through the night. His is present and encourages him to participate in PT treatment. Pain Numeric Pain Scale: 7 Location Body Site: Back Comment: pain in thoracic region Pt/Family Goals Patient wishes to return to independent function and relief of pain. Objective Patient Orientation: Normal For Age Problem Solving: Good Attachments: IV ROM/Strength ROM Upper Extremities WNL ROM Lower Extremities WNL Strength Upper Extremities WNL Strenght Lower Extremities WNL Integumentary/Posture Integumentary intact Bowel Incontinence: No Bladder Incontinence: No Neuromuscular (Tone, Coordination, Reflexes) normal Sensory Vision: Wears Glasses Hearing: Functional Hand Dominance: Right Sensation Right Upper Extremit: Intact Sensation Left Upper Extremity: Intact Sensation Right Lower Extremit: Intact Sensation Left Lower Extremity: Intact Transfers Functional [place] Measure 0=Not Assessed/NA 4=Minimal Assistance 1=Total Assistance 5=Supervision or Setup 2=Maximal Assistance 6=Modified [place] 3=Moderate Assistance 7=Complete [place] Transfers (B, C, W/C) (FIM): 5 Scootin Rollin Supine to/from Sit: 5 Sit to/from Stand: 5 Sit to Lying (QC): 5 Lying to Sitting/Side of Bed(Q: 5 Sit to Stand (QC): 5 Chair/[id number] Xfer(QC): 5 PT is SBA with transfers. Patient only requires set up to complete all transfers. Gait Does the Patient Walk?: Yes Mode of Locomotion: Walk Anticipated Mode of Locomotion: Walk Gait (FIM): 4 Distance: 300' Walk 50 ft with 2 Turns(QC): 4 Walk 150 ft (QC): 4 Gait Level of Assist: 4 Gait Persons Needed: 1 Gait Assistive Device: FWW Comments/Gait Description Patient walks with reciprocal gait pattern in the FWW. Patient has intermittent bouts of unsteadiness which are usually self correctable, but the patient does requires CGA for safety. Patient has more trouble with turning than walking. Balance Sitting Static: Normal Sitting Dynamic: Normal Standing Static: Normal Standing Dynamic: Fair Assessment/Needs Patient reports some intermittent weakness in L LE due to spinal cord compression from mass in thoracic region. PT will continue to improve safety during ambulation with gait training and therapeutic exercise. Rehab Potential: Fair PT Fpc Goals Fpc Goals PT Blanket Inspector Goals Time Frame: May 29, 2017 Transfers (B,C,W/C) (FIM): 6 Sit to Lying (QC): 6 Lying-Sitting on Side/Bed(QC): 6 Sit to Stand (QC): 6 Rollin Does the Patient Walk: Yes Gait (FIM): 5 Distance: >300' Walk 50ft with 2 Turns (QC): 5 Walk 150 ft (QC): 5 Gait Level of Assist: 5 Gait Assistive Device: FWW PT Plan Problem List Problem List: Activity Tolerance, Functional Strength, Safety, Balance, Gait, Transfer Treatment/Plan Treatment Plan: Continue Plan of Care Treatment Plan: Education, Functional Activity [place], Functional Strength, Gait , Safety, Therapeutic Exercise Treatment Duration: May 15, 2017 Frequency: 6 times per week Estimated Hrs Per Day: .25 hour per day Patient and/or Family Agrees t: Yes Safety Risks/Education Patient Education: Gait Training, Reviewed Precautions, Safety Issues Teaching Recipient: Patient Teaching Methods: Demonstration, Discussion Response to Teaching: Verbalize Understanding, Return Demonstration Discharge Recommendations Therapy D/C Recommendations: Home w/ Family Support Equpiment Recommendations-D/C: Front Wheeled Walker Time/GCodes Time In: 1147 Time Out: 1215 Total Billed Treatment Time: 28 Total Billed Treatment 1 visit EVMod 13 min GT 15 TALIA RANKIN PT May 08, 2017 12:58
--- NOTE | 2017-05-08 16:08 | Progress Note-Hospitalist ---
Subjective HPI/CC On Admission Date Seen by Provider: May 08, 2017 Time Seen by Provider: 15:45 Subjective/Events-last exam Pt asleep during visit. reports that pain medicine is making him too sleepy despite lowering doses throughout the day. Fentanyl patch DC-ed and LOADING MACHINE ADJUSTER ordered by Dr. Lambert. They have tried lowering doses multiple times throughout the day but pt still dislikes level of sedation. Objective Exam Vital Signs Vital Sign - Last 12Hours 05/07/17 17:08 Temp 97.8 Pulse 54 Resp 16 B/P (MAP) 96/58 (71) Pulse Ox 93 O2 Delivery Room Air Capillary Refill : General Appearance: No Apparent Distress, WD/WN, Other (asleep, easily arousable) Respiratory: Lungs Clear, No Accessory Muscle Use, No Respiratory Distress Cardiovascular: Regular Rate, Rhythm, No Edema Gastrointestinal: Normal Bowel Sounds, Non Tender, Soft Results/Procedures Lab Laboratory Tests 05/08/17 06:06 Assessment/Plan Assessment and Plan Assess & Plan/Chief Complaint intractable pain due to metastatic cancer Diagnosis/Problems Diagnosis/Problems (1) Intractable pain Status: Acute Assessment & Plan: LOADING MACHINE ADJUSTER ordered by Dr Lambert Will defer changes to her for patient safety (2) History of traumatic brain injury Status: Chronic Assessment & Plan: Continue Tegretol for seizure ppx Patient prefers to take own (3) Prophylactic measure Assessment & Plan: Lovenox Reg Diet Saline Lock IVONNE BRISCOE MD May 08, 2017 16:08
[2017-05-08 16:45] VITALS: BP 127/71
[2017-05-08] MEDS: NS IV 1000 ML 1,000 ML IV SCH (17:32)
--- NOTE | 2017-05-08 17:53 | Oncology Progress Note ---
Subjective Time Seen by Provider: 17:30 Subjective/Events-last exam Pt was complaining of foggy mind and requested to back off COMMANDING OFFICER GARAGE. So reduced the CI and keep the bolus. He wants to reduce more. So we stopped the CI and kept the bolus. He then had pain attack "worst pain I ever have". When he was in pain , he was asking God to let him . We ended up giving him 50mcg bolus and then put him back to CI rate at 25mcg. His pain is better now. Data Review Labs Laboratory Tests 05/08/17 06:06: Red Blood Count 3.59L, Hemoglobin 11.6L, Hematocrit 34L, Neutrophils (%) (Auto) 83H, Lymphocytes (%) (Auto) 4L, Lymphocytes # (Auto) 0.4L, Monocytes # (Auto) 1.1H, Sodium Level 130L, Potassium Level 5.3H, Carbon Dioxide Level 20L, Blood Urea Nitrogen 27H, Glucose Level 123H, Aspartate Amino Transf (AST/SGOT) 250H, Alanine Aminotransferase (ALT/SGPT) 91H, Alkaline Phosphatase 149H, Total Protein 5.6L Physical Exam Vital Signs Vital Sign - Last 12Hours 05/07/17 17:08 Temp 97.8 Pulse 54 Resp 16 B/P (MAP) 96/58 (71) Pulse Ox 93 O2 Delivery Room Air Capillary Refill : General Appearance: Moderate Distress HEENT: PERRL/EOMI Neck: Supple Respiratory: Lungs Clear, No Accessory Muscle Use, No Respiratory Distress Cardiovascular: Regular Rate, Rhythm, No JVD Gastrointestinal: Non Tender, Soft Extremity: No Calf Tenderness, No Pedal Edema Neurologic/Psychiatric: Alert, Oriented x3 Impression & Plan Impression & Plan IMP: 1. Adenocarcinoma of the colon, s/p neoadjuvant chemoradiation (Xeloda) 2012, now recurrence with multiple mets in the lung, liver and bone. 2. Pathological fractures T3, T12/L1/L2 and mild cord compression. Worsening pain between shoulder blades required multiple IV Fentanyl and Dilaudid for pain control. 3. Nausea and vomiting, possible from narcotics but also high possibility of brain mets. 4. Pt is not interested in chemotherapy at this point but OK for radiation. 5. H/o L1 compression fracture due to injury over 10 years ago. 6. Constipation 7. Pain control. Plan: 1. Continue Decadron 4mg q 8 hrs to PO for now. 2. Adjust Fentanyl COMMANDING OFFICER GARAGE 3. Continue radiation treatment, planned for 10 doses. He is at 6/10 treatment as of today, last one next Sunday 4. Pepcid while on the steroid. 5. Milk magnesium, stool softener and MiraLax and hydration. Fleet enema PRN 6. I agree to be his primary physician from now. 7. Pt's family and daughter are accepting any decision patient makes including . 8. Pt is DNR. Clinical Quality Measures DVT/VTE Risk/Contraindication: Risk Factor Score Per Nursin TAHMINA WILKES MD May 08, 2017 17:53
[2017-05-08] MEDS: ENOXAPARIN 40 MG/0.4 ML (LOVENOX) SYR SC SCH (18:11)
[2017-05-08] MEDS ORDERED: LORazepam INJ 2 MG/ML (ATIVAN) VIAL IVP PRN (19:30)
[2017-05-08] MEDS ORDERED: fentaNYL INJECTION 100 MCG/2 ML AMP IVP PRN (19:45)
[2017-05-08 20:08] VITALS: BP 124/73
[2017-05-08] MEDS: POLYETHYLENE GLYCOL 17 GM (MIRALAX) PACK PO SCH (20:46)
[2017-05-08] MEDS ORDERED: DEXAMETHASONE 4 MG/ML SDV (DECADRON) ONE (22:08)
[2017-05-09] VITALS: BP 94/58
[2017-05-09] MEDS: fentaNYL PCA 300 MCG/30 ML VIAL IV PRN ×5 (03:52→18:00)
[2017-05-09] MEDS: DEXAMETHASONE 4 MG/ML SDV (DECADRON) IV SCH ×3 (03:57→20:06)
[2017-05-09 04:00] VITALS: BP 111/73
[2017-05-09] MEDS: CATHETER FLUSH 10 ML SYR IV SCH ×3 (04:29→22:36)
[2017-05-09 08:02] VITALS: BP 117/72
[2017-05-09] MEDS: BISACODYL 10 MG SUPP (DULCOLAX) PR SCH (08:09)
[2017-05-09] MEDS: DOCUSATE SODIUM 100 MG (COLACE) CAP PO SCH ×2 (08:31→20:14)
[2017-05-09] MEDS: IBUPROFEN TABLET 200 MG TAB PO SCH ×2 (08:31→12:53)
[2017-05-09] MEDS: FAMOTIDINE 20 MG (PEPCID) TABLET PO SCH ×2 (08:31→20:06)
[2017-05-09] MEDS: carBAMazepine 200 MG (TEGretol) TAB PO SCH ×2 (08:33→20:07)
--- NOTE | 2017-05-09 10:09 | Physical Therapy Progress Note ---
Therapy Progress Note PT visited with the patient this a.m. Patient spouse is present and states that he was in the worst pain possible last night and that patient had asked her if it was okay if God could take him. She also states that his cancer doctor stated that she had to put him on so much pain medicine that he could go into a comatose state. She states he was not alert at all through the night, but when she returned this morning he was awake and alert. Patient is asked if he would work with PT this a.m. because his radiation treatment is scheduled for 1300. Patient states that he cannot get up or perform therapeutic interventions this a.m. Patient spouse also tries to have him agree to PT, but he is unwilling to participate. 1 visit Patient Refusal DA MOJICA PT May 09, 2017 10:09
[2017-05-09] MEDS: NS IV 1000 ML 1,000 ML IV SCH (10:38)
[2017-05-09 12:00] VITALS: BP 119/75
--- NOTE | 2017-05-09 15:51 | Physical Therapy Daily Note ---
PT Daily Note-Current Subjective Patient states he feels considerably better since the pain episodes the last few days. Patient family is present and encourages him to walk because they are worried about recent weakness. Pain Numeric Pain Scale: 6 Location Body Site: Back Pain Description: Ache Appearance Patient in bed post tx with nurse call, phone, tray, all needs met. Mental Status Patient Orientation: Person, Place, Situation Attachments: IV Transfers Functional [place] Measure 0=Not Assessed/NA 4=Minimal Assistance 1=Total Assistance 5=Supervision or Setup 2=Maximal Assistance 6=Modified [place] 3=Moderate Assistance 7=Complete IndependenceIRFPAI Quality Coding Scale 6 Independent with activity with or without an assistive device 5 Patient requires set up or clean up by helper. Patient completes activity by themselves 4 Supervision or touching assist (CGA). [place] provide cues , steadying assist 3 The helper provides less than half the effort to complete the activity 2 The helper provides more than half the effort to complete the activity 1 Dependent. The helper does all the effort to complete an activity 7 Patient refused to complete or attempt activity 9 The patient did not perform the activity before the current illness or injury 88 Not attempted due to Medical conditions or safety concerns Transfers (B, C, W/C) (FIM): 5 Scootin Roll Left to Right (QC): 4 Supine to/from Sit: 5 Sit to/from Stand: 5 Sit to Lying (QC): 4 Sit to Stand (QC): 4 Chair/[id number] Xfer(QC): 4 Patient is SBA for bed mobility and sit to stand. Weight Bearing Right Lower Extremity: Right Full Weight Bearing Left Lower Extremity: Left Full Weight Bearing Gait Training Does the Patient Walk?: No and Walking Goal NOT indicated Gait (FIM): 4 Distance (FIM): 3=150 ft Distance: 300' Walk 50 ft with 2 Turns(QC): 4 Walk 150 ft (QC): 4 Gait Level of Assist: 4 Gait Persons Needed: 1 Gait Assistive Device: FWW Patient walks with step through gait pattern in the FWW. Patient's left LE occasionally experiences instability and weakness leading to hyperextension of the knee and either a valgus or varus movement of the knee. Patient seemed much more impulsive today as he walking with a significantly faster gait even when instructed to slow down while his leg seems unstable. Exercises Supine Ex: Straight leg raise Supine Reps: 10 Treatments bed mobility and transfers, ambulation, functional strengthening Assessment Current Status: Poor Progress Patient was experiencing muscle weakness and instability in bilateral LEs, primarily in the L LE. Patient behavior was also more impulsive on this date. PT will continue to work on gait training for more safe ambulation as well as LE therapeutic exercises in order to improve strength in bilateral LEs. PT Cosmetology Teacher Goals Cosmetology Teacher Goals PT [facility] Goals Time Frame: May 29, 2017 Transfers (B,C,W/C) (FIM): 6 Sit to Lying (QC): 6 Lying-Sitting on Side/Bed(QC): 6 Sit to Stand (QC): 6 Rollin Does the Patient Walk: Yes Gait (FIM): 5 Distance: >300' Walk 50ft with 2 Turns (QC): 5 Walk 150 ft (QC): 5 Gait Level of Assist: 5 Gait Assistive Device: FWW PT Plan Problem List Problem List: Activity Tolerance, Functional Strength, Safety, Balance, Gait, Transfer Treatment/Plan Treatment Plan: Continue Plan of Care Treatment Plan: Education, Functional Activity Gurmeet, Functional Strength, Gait , Safety, Therapeutic Exercise, Transfers Treatment Duration: May 15, 2017 Frequency: 6 times per week Estimated Hrs Per Day: .25 hour per day Patient and/or Family Agrees t: Yes Safety Risks/Education Patient Education: Gait Training, Transfer Techniques, Correct Positioning, Safety Issues Teaching Recipient: Patient Teaching Methods: Demonstration, Discussion Response to Teaching: Reinforcement Needed Time/GCodes Time In: 320 Time Out: 345 Total Billed Treatment Time: 25 Total Billed Treatment 1 visit EX 10 min GT 15 min DA MOJICA PT May 09, 2017 15:51
[2017-05-09 16:05] VITALS: BP 117/72
[2017-05-09] MEDS: ENOXAPARIN 40 MG/0.4 ML (LOVENOX) SYR SC SCH (16:12)
--- NOTE | 2017-05-09 17:24 | Oncology Progress Note ---
Subjective Time Seen by Provider: 17:00 Subjective/Events-last exam Pain is much better today, on COSMETIC COUNSELOR 50mcg CI and 25 mcg q 10mins. Pt is having a pleasant conversation with his family now He had radiation today. Had two bowel movement today Had a temp 101 last night but family did not want to have blood culture. Pt has no more fever since. ? thermometer issues? ? Data Review Labs Laboratory Tests 05/08/17 06:06: Red Blood Count 3.59L, Hemoglobin 11.6L, Hematocrit 34L, Neutrophils (%) (Auto) 83H, Lymphocytes (%) (Auto) 4L, Lymphocytes # (Auto) 0.4L, Monocytes # (Auto) 1.1H, Sodium Level 130L, Potassium Level 5.3H, Carbon Dioxide Level 20L, Blood Urea Nitrogen 27H, Glucose Level 123H, Aspartate Amino Transf (AST/SGOT) 250H, Alanine Aminotransferase (ALT/SGPT) 91H, Alkaline Phosphatase 149H, Total Protein 5.6L Physical Exam Vital Signs Vital Sign - Last 12Hours 05/07/17 17:08 Temp 97.8 Pulse 54 Resp 16 B/P (MAP) 96/58 (71) Pulse Ox 93 O2 Delivery Room Air Capillary Refill : General Appearance: No Apparent Distress HEENT: PERRL/EOMI Neck: Supple Respiratory: Lungs Clear, No Accessory Muscle Use, No Respiratory Distress Gastrointestinal: Non Tender, Soft Extremity: Non Tender, No Calf Tenderness, No Pedal Edema Neurologic/Psychiatric: Alert, Oriented x3 Impression & Plan Impression & Plan IMP: 1. Adenocarcinoma of the colon, s/p neoadjuvant chemoradiation (Xeloda) 2012, now recurrence with multiple mets in the lung, liver and bone. 2. Pathological fractures T3, T12/L1/L2 and mild cord compression. Worsening pain between shoulder blades required multiple IV Fentanyl and Dilaudid for pain control. 3. Nausea and vomiting, possible from narcotics but also high possibility of brain mets. 4. Pt is not interested in chemotherapy at this point but OK for radiation. 5. H/o L1 compression fracture due to injury over 10 years ago. 6. Constipation 7. Pain control. Plan: 1. Continue Decadron 4mg q 8 hrs , changed to IV last night due to unable to take PO. 2. Continue Fentanyl COSMETIC COUNSELOR 3. Continue radiation treatment, planned for 10 doses. He is at 6/10 treatment as of today, last one next Sunday 4. Pepcid while on the steroid. 5. Milk magnesium, stool softener and MiraLax and hydration. Fleet enema PRN 6. I agree to be his primary physician from now. 7. Pt's family and daughter are accepting any decision patient makes including . 8. Pt is DNR. Clinical Quality Measures DVT/VTE Risk/Contraindication: Risk Factor Score Per Nursin TAHMINA WILKES MD May 09, 2017 17:24
[2017-05-09 19:35] VITALS: BP 126/75
[2017-05-09] MEDS: POLYETHYLENE GLYCOL 17 GM (MIRALAX) PACK PO SCH (20:06)
[2017-05-10] VITALS: BP 126/69
[2017-05-10] MEDS: fentaNYL PCA 300 MCG/30 ML VIAL IV PRN ×4 (00:01→18:16)
[2017-05-10] MEDS: NS IV 1000 ML 1,000 ML IV SCH ×2 (00:48→16:55)
[2017-05-10] MEDS: DEXAMETHASONE 4 MG/ML SDV (DECADRON) IV SCH ×3 (03:15→20:40)
[2017-05-10 04:15] VITALS: BP 130/77
[2017-05-10] MEDS: CATHETER FLUSH 10 ML SYR IV SCH ×3 (05:59→22:05)
[2017-05-10 08:00] VITALS: BP 120/68
[2017-05-10] MEDS: FAMOTIDINE 20 MG (PEPCID) TABLET PO SCH ×2 (08:40→20:40)
[2017-05-10] MEDS: BISACODYL 10 MG SUPP (DULCOLAX) PR SCH (08:41)
[2017-05-10] MEDS: IBUPROFEN TABLET 200 MG TAB PO SCH ×2 (08:41→13:03)
[2017-05-10] MEDS: DOCUSATE SODIUM 100 MG (COLACE) CAP PO SCH ×2 (08:41→20:47)
[2017-05-10] MEDS: carBAMazepine 200 MG (TEGretol) TAB PO SCH ×2 (08:41→20:41)
--- NOTE | 2017-05-10 11:27 | Physical Therapy Daily Note ---
PT Daily Note-Current Subjective Patient is supine in bed upon PT entering the room. Patient seems in much better spirits today. He is agreeable to PT and is less impulsive, listening to PT instructions. Pain Numeric Pain Scale: 3 Location Body Site: Back Appearance Patient is left post tx supine in bed with and call light in reach. Mental Status Patient Orientation: Person, Place, Time, Situation Attachments: IV Transfers Functional [place] Measure 0=Not Assessed/NA 4=Minimal Assistance 1=Total Assistance 5=Supervision or Setup 2=Maximal Assistance 6=Modified [place] 3=Moderate Assistance 7=Complete IndependenceIRFPAI Quality Coding Scale 6 Independent with activity with or without an assistive device 5 Patient requires set up or clean up by helper. Patient completes activity by themselves 4 Supervision or touching assist (CGA). [place] provide cues , steadying assist 3 The helper provides less than half the effort to complete the activity 2 The helper provides more than half the effort to complete the activity 1 Dependent. The helper does all the effort to complete an activity 7 Patient refused to complete or attempt activity 9 The patient did not perform the activity before the current illness or injury 88 Not attempted due to Medical conditions or safety concerns Transfers (B, C, W/C) (FIM): 5 Scootin Supine to/from Sit: 5 Sit to/from Stand: 5 Patient can perform all bed mobility with SBA. Sit to stand transfer requires SBA due to intermittent weakness in L LE. Weight Bearing Right Lower Extremity: Right Full Weight Bearing Left Lower Extremity: Left Full Weight Bearing Gait Training Does the Patient Walk?: Yes Gait (FIM): 4 Distance: 250' Gait Level of Assist: 4 Gait Persons Needed: 1 Gait Assistive Device: FWW Patient was much more agreeable to PT cueing and instructions to gait with FWW on this date. Patient balance and gait pattern was much slower, yet more fluid on this date. Patient agreed that L LE felt more steady on this date. Exercises Supine Ex: Short Arc Quads, Straight leg raise Supine Reps: 15 Assessment Current Status: Good Progress Patient seemed in much better spirits today with better cooperation and tolerance for PT. PT will continue to address safe gait and transfer techniques as well as therapeutic exercise to address LE weakness. PT Jail Goals Jail Goals PT Road Contractor Goals Time Frame: May 29, 2017 Transfers (B,C,W/C) (FIM): 6 Sit to Lying (QC): 6 Lying-Sitting on Side/Bed(QC): 6 Sit to Stand (QC): 6 Rollin Does the Patient Walk: Yes Gait (FIM): 5 Distance: >300' Walk 50ft with 2 Turns (QC): 5 Walk 150 ft (QC): 5 Gait Level of Assist: 5 Gait Assistive Device: FWW PT Plan Problem List Problem List: Activity Tolerance, Functional Strength, Safety, Balance, Gait, Transfer Treatment/Plan Treatment Plan: Continue Plan of Care Treatment Plan: Education, Functional Activity Gurmeet, Functional Strength, Gait , Safety, Therapeutic Exercise, Transfers Treatment Duration: May 15, 2017 Frequency: 6 times per week Estimated Hrs Per Day: .25 hour per day Patient and/or Family Agrees t: Yes Time/GCodes Time In: 1033 Time Out: 1101 Total Billed Treatment Time: 28 Total Billed Treatment 1 visit EX 10 min GT 18 min TALIA RANKIN PT May 10, 2017 11:27
[2017-05-10 12:00] VITALS: BP 113/71
[2017-05-10] MEDS ORDERED: FENTANYL PATCH REMOVAL TP SCH (12:59)
[2017-05-10] MEDS ORDERED: fentaNYL PATCH 50 MCG (DURAGESIC) TD SCH (13:00)
[2017-05-10 15:40] VITALS: BP 129/79
--- NOTE | 2017-05-10 16:05 | Oncology Progress Note ---
Subjective Time Seen by Provider: 15:45 Subjective/Events-last exam Pain is much better. On Fentanyl PIECE WORK CHECKER same dose Pt felt better physical therapy and wants to have the physical therapy twice a day. Data Review Labs Physical Exam Vital Signs Vital Sign - Last 12Hours 05/07/17 17:08 Temp 97.8 Pulse 54 Resp 16 B/P (MAP) 96/58 (71) Pulse Ox 93 O2 Delivery Room Air Capillary Refill : General Appearance: No Apparent Distress Respiratory: Lungs Clear, No Accessory Muscle Use, No Respiratory Distress Cardiovascular: Regular Rate, Rhythm, No JVD Gastrointestinal: Non Tender, Soft Extremity: Non Tender, No Calf Tenderness Impression & Plan Impression & Plan IMP: 1. Adenocarcinoma of the colon, s/p neoadjuvant chemoradiation (Xeloda) 2012, now recurrence with multiple mets in the lung, liver and bone. 2. Pathological fractures T3, T12/L1/L2 and mild cord compression. Worsening pain between shoulder blades required multiple IV Fentanyl and Dilaudid for pain control. 3. Nausea and vomiting, possible from narcotics but also high possibility of brain mets. 4. Pt is not interested in chemotherapy at this point but OK for radiation. 5. H/o L1 compression fracture due to injury over 10 years ago. 6. Constipation 7. Pain control. Plan: 1. Continue Decadron 4mg q 8 hrs , changed to IV last night due to unable to take PO. 2. Continue Fentanyl PIECE WORK CHECKER 3. Continue radiation treatment, planned for 10 doses. He is at 6/10 treatment as of today, last one next Sunday 4. Pepcid while on the steroid. 5. Milk magnesium, stool softener and MiraLax and hydration. Fleet enema PRN 6. I agree to be his primary physician from now. 7. Physical therapy twice a day. 8. Pt is DNR. 9. Consult ortho for possible brace. Clinical Quality Measures DVT/VTE Risk/Contraindication: Risk Factor Score Per Nursin TAHMINA WILKES MD May 10, 2017 16:05
[2017-05-10] MEDS: ENOXAPARIN 40 MG/0.4 ML (LOVENOX) SYR SC SCH (16:56)
[2017-05-10] MEDS: DRONABINOL 2.5 MG (MARINOL) CAP PO SCH (18:16)
[2017-05-10 19:50] VITALS: BP 116/81
[2017-05-10] MEDS: POLYETHYLENE GLYCOL 17 GM (MIRALAX) PACK PO SCH (20:41)
[2017-05-11] VITALS: BP 128/78
[2017-05-11] MEDS: fentaNYL PCA 300 MCG/30 ML VIAL IV PRN ×5 (00:18→23:50)
[2017-05-11] MEDS: DEXAMETHASONE 4 MG/ML SDV (DECADRON) IV SCH ×3 (03:07→20:30)
[2017-05-11 04:00] VITALS: BP 110/72
[2017-05-11] MEDS: NS IV 1000 ML 1,000 ML IV SCH ×3 (05:26→20:33)
[2017-05-11] MEDS: CATHETER FLUSH 10 ML SYR IV SCH ×3 (05:52→20:33)
[2017-05-11 07:20] VITALS: BP 124/84
[2017-05-11] MEDS: IBUPROFEN TABLET 200 MG TAB PO SCH ×2 (07:49→14:05)
[2017-05-11] MEDS: FAMOTIDINE 20 MG (PEPCID) TABLET PO SCH ×2 (07:49→20:31)
[2017-05-11] MEDS: carBAMazepine 200 MG (TEGretol) TAB PO SCH ×2 (07:50→20:32)
[2017-05-11] MEDS: BISACODYL 10 MG SUPP (DULCOLAX) PR SCH (07:53)
[2017-05-11] MEDS: DOCUSATE SODIUM 100 MG (COLACE) CAP PO SCH ×2 (07:55→20:32)
[2017-05-11] MEDS ORDERED: DRONABINOL 2.5 MG (MARINOL) CAP PO SCH (11:00)
--- NOTE | 2017-05-11 11:21 | Physical Therapy Daily Note ---
PT Daily Note-Current Subjective Patient is in better spirits this morning. He agrees to Pt and would like to try ambulation with his tennis shoes on today. Pain Numeric Pain Scale: 5-Moderate Pain Location Body Site: Back Appearance Patient is left post tx supine in bed with call light in reach and spouse present. Mental Status Patient Orientation: Person, Place, Time, Situation Attachments: IV Transfers Functional [place] Measure 0=Not Assessed/NA 4=Minimal Assistance 1=Total Assistance 5=Supervision or Setup 2=Maximal Assistance 6=Modified [place] 3=Moderate Assistance 7=Complete IndependenceIRFPAI Quality Coding Scale 6 Independent with activity with or without an assistive device 5 Patient requires set up or clean up by helper. Patient completes activity by themselves 4 Supervision or touching assist (CGA). [place] provide cues , steadying assist 3 The helper provides less than half the effort to complete the activity 2 The helper provides more than half the effort to complete the activity 1 Dependent. The helper does all the effort to complete an activity 7 Patient refused to complete or attempt activity 9 The patient did not perform the activity before the current illness or injury 88 Not attempted due to Medical conditions or safety concerns Transfers (B, C, W/C) (FIM): 5 Scootin Supine to/from Sit: 5 Sit to/from Stand: 5 Patient performs all bed mobility and transfers with SBA. Weight Bearing Right Lower Extremity: Right Full Weight Bearing Left Lower Extremity: Left Full Weight Bearing Gait Training Does the Patient Walk?: Yes Gait (FIM): 4 Distance: 250' Gait Level of Assist: 4 Gait Persons Needed: 1 Gait Assistive Device: FWW Patient gait pattern is much more regular today. He states he feels a lot more comfortable walking with his shoes on and his gait pattern and stability are improved. Patient still has some stability issues usually negotiating turns which is why patient requires CGA for safety. Treatments Patient and spouse were educated on safe mobility and positioning in the home. Assessment Current Status: Good Progress Patient mood and adherence to direction in PT has greatly improved the last two visits. PT will continue addressing safe gait pattern in the FWW as well as educatoin and exercise to improve LE strength and endurance. PT Skilled Nursing Goals City Weighmaster Goals PT City Weighmaster Goals Time Frame: May 29, 2017 Transfers (B,C,W/C) (FIM): 6 Sit to Lying (QC): 6 Lying-Sitting on Side/Bed(QC): 6 Sit to Stand (QC): 6 Rollin Does the Patient Walk: Yes Gait (FIM): 5 Distance: >300' Walk 50ft with 2 Turns (QC): 5 Walk 150 ft (QC): 5 Gait Level of Assist: 5 Gait Assistive Device: FWW PT Plan Problem List Problem List: Activity Tolerance, Functional Strength, Safety, Balance, Gait Treatment/Plan Treatment Plan: Continue Plan of Care Treatment Plan: Education, Functional Activity Gurmeet, Functional Strength, Gait , Safety, Therapeutic Exercise, Transfers Treatment Duration: May 15, 2017 Frequency: 6 times per week Estimated Hrs Per Day: .25 hour per day Patient and/or Family Agrees t: Yes Time/GCodes Time In: 1021 Time Out: 1044 Total Billed Treatment Time: 23 Total Billed Treatment 1 visit GT 13 min EDUC 10 min TALIA RANKIN PT May 11, 2017 11:21
[2017-05-11] MEDS: DRONABINOL 2.5 MG (MARINOL) CAP PO SCH ×2 (11:51→16:47)
[2017-05-11 12:00] VITALS: BP 122/79
--- NOTE | 2017-05-11 13:31 | Physical Therapy Daily Note ---
PT Daily Note-Current Subjective Patient is supine in bed. He states he is feeling much better this p.m. and is ready to go for a walk. Pain Numeric Pain Scale: 3 Appearance Patient is left supine in bed with call light in reach and spouse present. Mental Status Patient Orientation: Person, Place, Time, Situation Attachments: IV Transfers Functional [place] Measure 0=Not Assessed/NA 4=Minimal Assistance 1=Total Assistance 5=Supervision or Setup 2=Maximal Assistance 6=Modified [place] 3=Moderate Assistance 7=Complete IndependenceIRFPAI Quality Coding Scale 6 Independent with activity with or without an assistive device 5 Patient requires set up or clean up by helper. Patient completes activity by themselves 4 Supervision or touching assist (CGA). [place] provide cues , steadying assist 3 The helper provides less than half the effort to complete the activity 2 The helper provides more than half the effort to complete the activity 1 Dependent. The helper does all the effort to complete an activity 7 Patient refused to complete or attempt activity 9 The patient did not perform the activity before the current illness or injury 88 Not attempted due to Medical conditions or safety concerns Transfers (B, C, W/C) (FIM): 5 Scootin Supine to/from Sit: 5 Sit to/from Stand: 5 Patient performs all bed mobility and transfers with SBA. Weight Bearing Right Lower Extremity: Right Full Weight Bearing Left Lower Extremity: Left Full Weight Bearing Gait Training Does the Patient Walk?: Yes Gait (FIM): 4 Distance: 300' Gait Level of Assist: 4 Gait Persons Needed: 1 Gait Assistive Device: FWW Patient ambulation was much more regular this afternoon. Patient did not have any balance or "giving out" episodes with his L knee. Patient has been much more acceptable to cueing and correction the last few visits. Exercises Supine Ex: Ankle pumps, Short Arc Quads, Straight leg raise Supine Reps: 10 Assessment Current Status: Good Progress Patient is more cooperative with PT and has better understanding of safe ambulation on this visit. Patient is agreeable to exercise to improve LE strength and endurance. PT Harness Mender Goals Harness Mender Goals PT Harness Mender Goals Time Frame: May 29, 2017 Transfers (B,C,W/C) (FIM): 6 Sit to Lying (QC): 6 Lying-Sitting on Side/Bed(QC): 6 Sit to Stand (QC): 6 Rollin Does the Patient Walk: Yes Gait (FIM): 5 Distance: >300' Walk 50ft with 2 Turns (QC): 5 Walk 150 ft (QC): 5 Gait Level of Assist: 5 Gait Assistive Device: FWW PT Plan Problem List Problem List: Activity Tolerance, Functional Strength, Safety, Balance, Gait Treatment/Plan Treatment Plan: Continue Plan of Care Treatment Plan: Education, Functional Activity Gurmeet, Functional Strength, Gait , Safety, Therapeutic Exercise, Transfers Treatment Duration: May 15, 2017 Frequency: 6 times per week Estimated Hrs Per Day: .25 hour per day Patient and/or Family Agrees t: Yes Time/GCodes Time In: 1240 Time Out: 1303 Total Billed Treatment Time: 23 Total Billed Treatment 1 visit EX 12 min GT 11 min TALIA RANKIN PT May 11, 2017 13:31
[2017-05-11 16:00] VITALS: BP 129/81
[2017-05-11] MEDS: ENOXAPARIN 40 MG/0.4 ML (LOVENOX) SYR SC SCH (16:57)
--- NOTE | 2017-05-11 18:42 | Oncology Progress Note ---
Subjective Time Seen by Provider: 18:00 Subjective/Events-last exam Pt had a good day. Pain in good control. He only needs the CI rate, seldom use the bolus dose of Fentanyl. He wants to have the CT guided biopsy of the lesions in the chest on Sunday which will help him to decide if he wants to have chemo. Physical Exam Vital Signs Vital Sign - Last 12Hours 05/07/17 17:08 Temp 97.8 Pulse 54 Resp 16 B/P (MAP) 96/58 (71) Pulse Ox 93 O2 Delivery Room Air Capillary Refill : General Appearance: No Apparent Distress HEENT: PERRL/EOMI Neck: Supple Respiratory: No Accessory Muscle Use, No Respiratory Distress Cardiovascular: Regular Rate, Rhythm, Bradycardia Gastrointestinal: Non Tender, Soft Extremity: Non Tender, No Calf Tenderness Neurologic/Psychiatric: Alert, Oriented x3 Impression & Plan Impression & Plan IMP: 1. Adenocarcinoma of the colon, s/p neoadjuvant chemoradiation (Xeloda) 2012, now recurrence with multiple mets in the lung, liver and bone. 2. Pathological fractures T3, T12/L1/L2 and mild cord compression. Worsening pain between shoulder blades required multiple IV Fentanyl and Dilaudid for pain control. 3. Nausea and vomiting, possible from narcotics but also high possibility of brain mets. 4. Pt is not interested in chemotherapy at this point but OK for radiation. 5. H/o L1 compression fracture due to injury over 10 years ago. 6. Constipation 7. Pain control. 8. Bradycardia. HR 40s resting. We had EKG and called Dr. Tejeda. He thinks it is because of the narcotic pain medication but pt is not at the point we can stop it. Plan: 1. Continue Decadron 4mg q 8 hrs till radiation done. 2. Continue Fentanyl VALVE SETTER 3. Continue radiation treatment, planned for 10 doses. He is at 9/10 treatment as of today, last one next Sunday 4. Pepcid while on the steroid. 5. Milk magnesium, stool softener and MiraLax and hydration. Fleet enema PRN 6. I agree to be his primary physician from now. 7. Physical therapy twice a day. 8. Pt is DNR. 9. CT guided biopsy Sunday. 10. Once the biopsy done, we can work to convert his IV Fentanyl to patch. Possible home on next Sun or . Clinical Quality Measures DVT/VTE Risk/Contraindication: Risk Factor Score Per Nursin TAHMINA WILKES MD May 11, 2017 18:42
[2017-05-11 19:31] VITALS: BP 134/83
[2017-05-11] MEDS: POLYETHYLENE GLYCOL 17 GM (MIRALAX) PACK PO SCH (20:32)
[2017-05-12] VITALS: BP 113/73
[2017-05-12 04:00] VITALS: BP 113/58
[2017-05-12] MEDS: DEXAMETHASONE 4 MG/ML SDV (DECADRON) IV SCH ×3 (04:04→20:59)
[2017-05-12] MEDS: fentaNYL PCA 300 MCG/30 ML VIAL IV PRN ×4 (05:44→20:16)
[2017-05-12] MEDS: CATHETER FLUSH 10 ML SYR IV SCH ×2 (06:35→13:15)
[2017-05-12 08:00] VITALS: BP 130/74
[2017-05-12] MEDS: FAMOTIDINE 20 MG (PEPCID) TABLET PO SCH ×2 (08:21→20:58)
[2017-05-12] MEDS: carBAMazepine 200 MG (TEGretol) TAB PO SCH ×2 (08:21→20:58)
[2017-05-12] MEDS: DOCUSATE SODIUM 100 MG (COLACE) CAP PO SCH ×2 (08:23→20:20)
[2017-05-12] MEDS: IBUPROFEN TABLET 200 MG TAB PO SCH ×2 (08:23→13:38)
[2017-05-12] MEDS: BISACODYL 10 MG SUPP (DULCOLAX) PR SCH (08:23)
--- NOTE | 2017-05-12 11:09 | Physical Therapy Progress Note ---
Therapy Progress Note Pt's family present. Reported "He's struggling with a lot of pain today, he won' t be able to work with you". SAMANTHA CUMMINGS DPT May 12, 2017 11:09
[2017-05-12] MEDS: DRONABINOL 2.5 MG (MARINOL) CAP PO SCH ×2 (12:22→15:59)
[2017-05-12 13:30] VITALS: BP 110/64
[2017-05-12 15:25] VITALS: BP 120/68
[2017-05-12] MEDS: ENOXAPARIN 40 MG/0.4 ML (LOVENOX) SYR SC SCH (16:04)
[2017-05-12] MEDS: NS IV 1000 ML 1,000 ML IV SCH (16:05)
[2017-05-12 19:13] VITALS: BP 121/70
[2017-05-12] MEDS: POLYETHYLENE GLYCOL 17 GM (MIRALAX) PACK PO SCH (20:21)
[2017-05-13] VITALS: BP 120/70
[2017-05-13] MEDS: fentaNYL PCA 300 MCG/30 ML VIAL IV PRN ×5 (00:07→18:32)
[2017-05-13] MEDS: CATHETER FLUSH 10 ML SYR IV SCH ×4 (03:50→22:00)
[2017-05-13] MEDS: DEXAMETHASONE 4 MG/ML SDV (DECADRON) IV SCH ×3 (03:50→20:13)
[2017-05-13 04:00] VITALS: BP 116/45
[2017-05-13 08:00] VITALS: BP 140/90
[2017-05-13] MEDS: DOCUSATE SODIUM 100 MG (COLACE) CAP PO SCH ×2 (08:04→21:20)
[2017-05-13] MEDS: FAMOTIDINE 20 MG (PEPCID) TABLET PO SCH ×2 (08:04→21:20)
[2017-05-13] MEDS: IBUPROFEN TABLET 200 MG TAB PO SCH ×3 (08:05→17:12)
[2017-05-13] MEDS: BISACODYL 10 MG SUPP (DULCOLAX) PR SCH (08:06)
[2017-05-13] MEDS: carBAMazepine 200 MG (TEGretol) TAB PO SCH ×2 (08:06→20:15)
[2017-05-13] MEDS: DRONABINOL 2.5 MG (MARINOL) CAP PO SCH ×2 (11:29→17:12)
[2017-05-13 12:00] VITALS: BP 103/59
[2017-05-13] MEDS: NS IV 1000 ML 1,000 ML IV SCH (12:06)
[2017-05-13] MEDS: ENOXAPARIN 40 MG/0.4 ML (LOVENOX) SYR SC SCH (15:22)
[2017-05-13 15:30] VITALS: BP 120/75
[2017-05-13 19:54] VITALS: BP 115/98
[2017-05-13] MEDS: ACETAMINOPHEN 500 MG TAB (TYLENOL) PO PRN (21:20)
[2017-05-13] MEDS: POLYETHYLENE GLYCOL 17 GM (MIRALAX) PACK PO SCH (21:21)
[2017-05-14] VITALS (12 sets, daily range): BP systolic 108–133; BP diastolic 62–72
[2017-05-14] MEDS: fentaNYL PCA 300 MCG/30 ML VIAL IV PRN ×5 (00:36→20:22)
[2017-05-14] MEDS: DEXAMETHASONE 4 MG/ML SDV (DECADRON) IV SCH ×2 (05:06→12:26)
[2017-05-14] MEDS: CATHETER FLUSH 10 ML SYR IV SCH ×4 (07:04→19:45)
[2017-05-14] MEDS: DOCUSATE SODIUM 100 MG (COLACE) CAP PO SCH ×2 (08:54→20:55)
[2017-05-14] MEDS: FAMOTIDINE 20 MG (PEPCID) TABLET PO SCH ×2 (08:54→20:55)
[2017-05-14] MEDS: NS IV 1000 ML 1,000 ML IV SCH (08:54)
[2017-05-14] MEDS: IBUPROFEN TABLET 200 MG TAB PO SCH ×3 (08:55→17:34)
[2017-05-14] MEDS: BISACODYL 10 MG SUPP (DULCOLAX) PR SCH (08:56)
[2017-05-14] MEDS: carBAMazepine 200 MG (TEGretol) TAB PO SCH ×2 (08:56→20:24)
[2017-05-14 08:57] LABS: MEAN CORPUSCULAR HEMOGLOBIN 32 PG (25-34); MEAN CORPUSCULAR HGB CONC 33 G/DL (32-36); MEAN CORPUSCULAR VOLUME 98 FL (80-99); MEAN PLATELET VOLUME 10.2 FL (7.4-10.4); PLATELET COUNT 184 10^3/uL (130-400); RED BLOOD COUNT 3.32 10^6/uL (4.35-5.85); RED CELL DISTRIBUTION WIDTH 12.9 % (10.0-14.5); WHITE BLOOD COUNT 5.8 10^3/uL (4.3-11.0)
[2017-05-14 09:17] LABS: INR 1.2 (0.8-1.4); PROTHROMBIN TIME PATIENT 15.1 SEC (12.2-14.7)
--- NOTE | 2017-05-14 09:41 | Oncology Progress Note ---
Subjective Time Seen by Provider: 11:45 Subjective/Events-last exam Pt will have his last dose of radiation today He will also have CT guided biopsy of the RLL lung lesion today His pain is under good control. Mild bilateral lower extremity edema Data Review Labs Laboratory Tests 05/14/17 08:40 Laboratory Tests 05/14/17 08:40: Red Blood Count 3.32L, Hemoglobin 10.6L, Hematocrit 33L, Neutrophils (%) (Auto) 90H, Lymphocytes (%) (Auto) 4L, Lymphocytes # (Auto) 0.2L, Prothrombin Time 15.1H, Sodium Level 134L, Blood Urea Nitrogen 19H, Glucose Level 125H, Alanine Aminotransferase (ALT/SGPT) 102H, Alkaline Phosphatase 180H, Total Protein 5.0L , Albumin 2.7L Physical Exam Vital Signs Vital Sign - Last 12Hours 05/08/17 00:00 Temp 98.5 Pulse 63 Resp 21 B/P (MAP) 110/62 (78) Pulse Ox 93 O2 Delivery Room Air Capillary Refill : General Appearance: No Apparent Distress HEENT: PERRL/EOMI Neck: Supple Respiratory: Chest Non Tender, No Accessory Muscle Use, No Respiratory Distress Cardiovascular: Regular Rate, Rhythm, Bradycardia Gastrointestinal: Non Tender, Soft, Distended Extremity: Non Tender, No Calf Tenderness, Pedal Edema Neurologic/Psychiatric: Alert, Oriented x3 Impression & Plan Impression & Plan IMP: 1. Adenocarcinoma of the colon, s/p neoadjuvant chemoradiation (Xeloda) 2012, now recurrence with multiple mets in the lung, liver and bone. 2. Pathological fractures T3, T12/L1/L2 and mild cord compression. Worsening pain between shoulder blades required multiple IV Fentanyl and Dilaudid for pain control. 3. Nausea and vomiting, possible from narcotics but also high possibility of brain mets. 4. Pt is not interested in chemotherapy at this point but OK for radiation. 5. H/o L1 compression fracture due to injury over 10 years ago. 6. Constipation 7. Pain control. 8. Bradycardia. HR 40s resting. We had EKG and called Dr. Tejeda. He thinks it is because of the narcotic pain medication but pt is not at the point we can stop it. 9. Mild edema 10. Anemia: IV dilution and chronic illness Plan: 1. Will change Decadron 4mg q 8 hrs from IV to PO bid tonight. 2. Continue Fentanyl TICKER MAINTAINER for now. Starting Fentanyl patch tonight with IV Fentanyl PRN break through. He will need 1-2 days to slowly wean off IV TICKER MAINTAINER. 3. Continue radiation treatment, planned for 10 doses. He is on last dose today 4. Pepcid while on the steroid. 5. Milk magnesium, stool softener and MiraLax and hydration. Fleet enema PRN 6. I would re-evaluate the his fluid status tomorrow to decide if he will benefit a dose of Lasix. I would not give it today due to the biopsy procedure and narcotics and his BP is only 112/66. 7. Physical therapy twice a day. 8. Pt is DNR. 9. Pt wants to be discharged to home. I will see him in 1-2 weeks at cancer center to discuss the biopsy results and pain management. Clinical Quality Measures DVT/VTE Risk/Contraindication: Risk Factor Score Per Nursin TAHMINA WILKES MD May 14, 2017 09:41
[2017-05-14 09:49] LABS: BASOPHILS % (AUTO) 0 % (0-10); EOSINOPHILS % (AUTO) 0 % (0-10); LYMPHOCYTES # (AUTO) 0.2 X 10^3 (1.0-4.0); LYMPHOCYTES % (AUTO) 4 % (12-44); MONOCYTES # (AUTO) 0.4 X 10^3 (0.0-1.0); MONOCYTES % (AUTO) 6 % (0-12); NEUTROPHILS # (AUTO) 5.5 X 10^3 (1.8-7.8); NEUTROPHILS % (AUTO) 90 % (42-75)
[2017-05-14 09:55] LABS: ALANINE AMINOTRANSFERASE 102 U/L (0-55); ALBUMIN 2.7 GM/DL (3.2-4.5); ANION GAP 8 MMOL/L (5-14); ASPARTATE AMINO TRANSFERASE 29 U/L (5-34); BILIRUBIN,TOTAL 0.6 MG/DL (0.1-1.0); BLOOD UREA NITROGEN 19 MG/DL (7-18); BUN/CREATININE RATIO 28; CALCIUM 8.5 MG/DL (8.5-10.1); CARBON DIOXIDE 21 MMOL/L (21-32); CHLORIDE 105 MMOL/L (98-107); CREATININE SERUM 0.69 MG/DL (0.60-1.30); GFR ESTIMATED > 60; GLUCOSE 125 MG/DL (70-105); POTASSIUM 4.3 MMOL/L (3.6-5.0); SODIUM 134 MMOL/L (135-145)
--- NOTE | 2017-05-14 10:40 | Physical Therapy Daily Note ---
PT Daily Note-Current Subjective Spouse reports patient has had a bad night with his breathing. Patient agrees to PT. Pain Numeric Pain Scale: 5-Moderate Pain Location: Right, Left Location Body Site: Hip Pain Description: Ache Mental Status Patient Orientation: Person, Time, Situation Attachments: IV Transfers Functional [place] Measure 0=Not Assessed/NA 4=Minimal Assistance 1=Total Assistance 5=Supervision or Setup 2=Maximal Assistance 6=Modified [place] 3=Moderate Assistance 7=Complete IndependenceIRFPAI Quality Coding Scale 6 Independent with activity with or without an assistive device 5 Patient requires set up or clean up by helper. Patient completes activity by themselves 4 Supervision or touching assist (CGA). [place] provide cues , steadying assist 3 The helper provides less than half the effort to complete the activity 2 The helper provides more than half the effort to complete the activity 1 Dependent. The helper does all the effort to complete an activity 7 Patient refused to complete or attempt activity 9 The patient did not perform the activity before the current illness or injury 88 Not attempted due to Medical conditions or safety concerns Transfers (B, C, W/C) (FIM): 4 Scootin Roll Left to Right (QC): 5 Supine to/from Sit: 5 Sit to/from Stand: 4 Sit to Lying (QC): 5 Sit to Stand (QC): 4 Chair/Vgv-ej-Bannh Xfer(QC): 4 CGA for safety with use of gait belt Weight Bearing Right Lower Extremity: Right Full Weight Bearing Left Lower Extremity: Left Full Weight Bearing Gait Training Does the Patient Walk?: Yes Gait (FIM): 4 Distance (FIM): 3=150 ft Distance: 150' Walk 50 ft with 2 Turns(QC): 4 Walk 150 ft (QC): 4 Gait Level of Assist: 4 Gait Persons Needed: 1 Gait Assistive Device: FWW slightly unsteady gait sequence with right LE demonstrating decreased proprioception; increase SOA with minimal activity on this date. Assessment Patient is fatiguing more quickly on this date with minimal activity. Patient' s spouse voices concern with medical plan and reports she doesn't know what to do. This PT encouraged spouse to discuss concerns with physician and/or SW. PT Truck Service Technician Goals Retirement Goals PT Truck Service Technician Goals Time Frame: May 29, 2017 Transfers (B,C,W/C) (FIM): 6 Sit to Lying (QC): 6 Lying-Sitting on Side/Bed(QC): 6 Sit to Stand (QC): 6 Rollin Does the Patient Walk: Yes Gait (FIM): 5 Distance: >300' Walk 50ft with 2 Turns (QC): 5 Walk 150 ft (QC): 5 Gait Level of Assist: 5 Gait Assistive Device: FWW PT Plan Treatment/Plan Treatment Plan: Continue Plan of Care Treatment Plan: Education, Functional Activity Gurmeet, Functional Strength, Gait , Safety, Therapeutic Exercise, Transfers Treatment Duration: May 29, 2017 Frequency: 6 times per week Estimated Hrs Per Day: .25 hour per day Patient and/or Family Agrees t: Yes Time/GCodes Time In: 1006 Time Out: 1021 Total Billed Treatment Time: 15 Total Billed Treatment 1 visit FA 15 min TALIA RANKIN PT May 14, 2017 10:40
[2017-05-14] MEDS: DRONABINOL 2.5 MG (MARINOL) CAP PO SCH ×2 (11:00→17:34)
[2017-05-14] MEDS ORDERED: LIDOCAINE 1% INJ 20 ML (XYLOCAINE) VIAL INJ ONE (13:45)
--- NOTE | 2017-05-14 13:55 | Physical Therapy Daily Note ---
PT Daily Note-Current Subjective Patient agrees to PT. Family present. Pain Numeric Pain Scale: 0-No Pain Location: No Pain Reported Mental Status Patient Orientation: Person, Time, Situation Attachments: IV Transfers Functional [place] Measure 0=Not Assessed/NA 4=Minimal Assistance 1=Total Assistance 5=Supervision or Setup 2=Maximal Assistance 6=Modified [place] 3=Moderate Assistance 7=Complete IndependenceIRFPAI Quality Coding Scale 6 Independent with activity with or without an assistive device 5 Patient requires set up or clean up by helper. Patient completes activity by themselves 4 Supervision or touching assist (CGA). [place] provide cues , steadying assist 3 The helper provides less than half the effort to complete the activity 2 The helper provides more than half the effort to complete the activity 1 Dependent. The helper does all the effort to complete an activity 7 Patient refused to complete or attempt activity 9 The patient did not perform the activity before the current illness or injury 88 Not attempted due to Medical conditions or safety concerns Transfers (B, C, W/C) (FIM): 4 Scootin Roll Left to Right (QC): 5 Supine to/from Sit: 5 Sit to/from Stand: 4 Sit to Lying (QC): 5 Sit to Stand (QC): 5 Weight Bearing Right Lower Extremity: Right Full Weight Bearing Left Lower Extremity: Left Full Weight Bearing Gait Training Does the Patient Walk?: Yes Gait (FIM): 4 Distance (FIM): 3=150 ft Distance: 450' Walk 50 ft with 2 Turns(QC): 4 Walk 150 ft (QC): 4 Gait Level of Assist: 4 Gait Persons Needed: 1 Gait Assistive Device: FWW Patient was slightly unsteady this p.m., however, is motivated with participation. Exercises Supine Ex: Ankle pumps, Quad Set, Heel Slides, Straight leg raise Supine Reps: 10 Seated Therapy Exercises: Ankle pumps, Long arc quads Seated Reps: 10 Assessment Patient to have biopsy this p.m. Patient is in good spirits. Limited due to progression of metastatic disease. PT Halfway Goals Director Market Research Goals PT Director Market Research Goals Time Frame: May 29, 2017 Transfers (B,C,W/C) (FIM): 6 Sit to Lying (QC): 6 Lying-Sitting on Side/Bed(QC): 6 Sit to Stand (QC): 6 Rollin Does the Patient Walk: Yes Gait (FIM): 5 Distance: >300' Walk 50ft with 2 Turns (QC): 5 Walk 150 ft (QC): 5 Gait Level of Assist: 5 Gait Assistive Device: FWW PT Plan Treatment/Plan Treatment Plan: Continue Plan of Care Treatment Plan: Education, Functional Activity Gurmeet, Functional Strength, Gait , Safety, Therapeutic Exercise, Transfers Treatment Duration: May 29, 2017 Frequency: 11 times per week Estimated Hrs Per Day: .5 hour per day Patient and/or Family Agrees t: Yes Time/GCodes Time In: 1240 Time Out: 1303 Total Billed Treatment Time: 23 Total Billed Treatment 1 visit GT 13 min EX 10 min TALIA RANKIN PT May 14, 2017 13:54
--- NOTE | 2017-05-14 14:55 | Pre-Procedure Progress Note ---
Pre-Procedure Progress Note H&P Reviewed The H&P was reviewed, patient examined and no changes noted. Date H&P Reviewed: May 14, 2017 Time H&P Reviewed: 14:00 Pre-Procedure Diagnosis: lung masses CHARLA JONES MD May 14, 2017 14:55
[2017-05-14] MEDS ORDERED: HYDROcodone/APAP 5 MG/325 MG (LORTAB) TAB PO PRN (15:00)
[2017-05-14] MEDS ORDERED: fentaNYL PATCH 75 MCG (DURAGESIC) TD SCH (16:15)
--- NOTE | 2017-05-14 17:05 | Diagnostic Imaging Report ---
EXAMINATION: CT-guided biopsy-lung. INDICATION: Lung masses. Current history and physical and other medical records are reviewed prior to the procedure. CONSENT: Informed consent was obtained from the patient. The risks, benefits, potential complications and alternatives were reviewed and all questions answered to the patient's satisfaction. The patient's vital signs, cardiac rhythm, and pulse oximetry were observed throughout the procedure by qualified nursing personnel. Sedation/medications: none. FINDINGS: Large right middle lobe mass. PROCEDURE: After maximal sterile barrier technique preparation and draping, 1% lidocaine was utilized for local anesthesia. With the patient in supine position, and via anterior intercostal approach, a 17-gauge guide needle is introduced into the right middle lobe mass under CT scan guidance. After confirming adequate positioning with saved CT images, multiple 18 gauge core biopsy specimens were obtained. Autologous blood patch injected in the tract as the guide needle was removed The patient tolerated the procedure well with no immediate complications. IMPRESSION: Successful CT-guided biopsy of right middle lobe lung mass. Dictated by: Dictated on workstation # [id number]
--- NOTE | 2017-05-14 18:51 | Diagnostic Imaging Report ---
EXAM: Expiratory upright AP view of the chest. INDICATION: Post lung biopsy. FINDINGS: Numerous masses and nodules in the lungs from known metastasis is seen. There is no pneumothorax. The heart size is at the upper limits of normal. Small effusion on the right side is seen. No evidence of a pneumothorax. IMPRESSION: Bilateral pulmonary masses, larger on the right side. No pneumothorax. Dictated by: Dictated on workstation # [id number]
[2017-05-14] MEDS: DEXAMETHASONE 4 MG TAB (DECADRON) PO SCH (20:55)
[2017-05-14] MEDS: POLYETHYLENE GLYCOL 17 GM (MIRALAX) PACK PO SCH (20:56)
[2017-05-15] VITALS: BP 122/75
[2017-05-15] MEDS: fentaNYL PCA 300 MCG/30 ML VIAL IV PRN ×3 (02:10→16:21)
[2017-05-15 04:00] VITALS: BP 124/69
[2017-05-15] MEDS: NS IV 1000 ML 1,000 ML IV SCH (06:04)
[2017-05-15 08:00] VITALS: BP 120/75
[2017-05-15] MEDS: IBUPROFEN TABLET 200 MG TAB PO SCH ×3 (08:50→17:55)
[2017-05-15] MEDS: FAMOTIDINE 20 MG (PEPCID) TABLET PO SCH ×2 (08:51→21:07)
[2017-05-15] MEDS: DEXAMETHASONE 4 MG TAB (DECADRON) PO SCH ×2 (08:51→21:07)
[2017-05-15] MEDS: DOCUSATE SODIUM 100 MG (COLACE) CAP PO SCH ×2 (08:51→21:07)
[2017-05-15] MEDS: BISACODYL 10 MG SUPP (DULCOLAX) PR SCH (08:54)
[2017-05-15] MEDS: carBAMazepine 200 MG (TEGretol) TAB PO SCH ×2 (08:54→19:52)
--- NOTE | 2017-05-15 10:08 | Physical Therapy Progress Note ---
Therapy Progress Note Patient's spouse declined PT intervention this a.m. due to patient has a cough and is "not doing well". SWB coordinator notified. PT will attempt in p.m. 1 ref TALIA RANKIN PT May 15, 2017 10:08
[2017-05-15] MEDS ORDERED: FUROSEMIDE 40 MG (LASIX) TAB PO NR (11:30)
--- NOTE | 2017-05-15 11:37 | Oncology Progress Note ---
Subjective Time Seen by Provider: 11:45 Subjective/Events-last exam Pt tolerated CT guided biopsy well, no pneumothorax. Pt has very small right pleural effusion but multiple tumor masses in both lungs. Started Fentanyl patch last night at 75mcg in preparing to wean off BENCH MOLDER APPRENTICE and then home. He needed more bolus since we back off the CI from 50 to 30mg/hr. He used 90mcg over last 3 hrs. He finished last dose of radiation treatment today (machine broke yesterday) Anticipate to be discharge home tomorrow afternoon if no pain flare. Data Review Labs Laboratory Tests 05/14/17 08:40: Red Blood Count 3.32L, Hemoglobin 10.6L, Hematocrit 33L, Neutrophils (%) (Auto) 90H, Lymphocytes (%) (Auto) 4L, Lymphocytes # (Auto) 0.2L, Prothrombin Time 15.1H, Sodium Level 134L, Blood Urea Nitrogen 19H, Glucose Level 125H, Alanine Aminotransferase (ALT/SGPT) 102H, Alkaline Phosphatase 180H, Total Protein 5.0L , Albumin 2.7L Physical Exam Vital Signs Vital Sign - Last 12Hours 05/09/17 00:00 Temp 98.7 Pulse 68 Resp 23 B/P (MAP) 94/58 (70) Pulse Ox 91 O2 Delivery Room Air Capillary Refill : Less Than 3 Seconds General Appearance: No Apparent Distress HEENT: PERRL/EOMI Respiratory: No Accessory Muscle Use, No Respiratory Distress Gastrointestinal: Non Tender, Soft, Distended Extremity: Pedal Edema Impression & Plan Impression & Plan IMP: 1. Adenocarcinoma of the colon, s/p neoadjuvant chemoradiation (Xeloda) 2012, now recurrence with multiple mets in the lung, liver and bone. 2. Pathological fractures T3, T12/L1/L2 and mild cord compression. Worsening pain between shoulder blades required multiple IV Fentanyl and Dilaudid for pain control. 3. Nausea and vomiting, possible from narcotics but also high possibility of brain mets. 4. Pt is not interested in chemotherapy at this point but OK for radiation. 5. H/o L1 compression fracture due to injury over 10 years ago. 6. Constipation 7. Pain control. 8. Bradycardia. HR 40s resting. We had EKG and called Dr. Tejeda. He thinks it is because of the narcotic pain medication but pt is not at the point we can stop it. 9. Mild edema 10. Anemia: IV dilution and chronic illness Plan: 1. Wean off Decadron over a week. 2. Continue Fentanyl BENCH MOLDER APPRENTICE weaning. Add additional 75mcg Fentanyl patch to make a total of 150mcg q 72hrs with IV Fentanyl PRN break through. Anticipate to be discharge home tomorrow afternoon if no pain flares. Pt can not take morphine or hydrocodone caused him vomiting but he can take Dilaudid PO. We may use it as break through when going home. 3. Finished the [id number] doses of radiation 05/14/17. Re-scan in a month to evaluate the results. 4. Pepcid while on the steroid. 5. Milk magnesium, stool softener and MiraLax and hydration. Fleet enema PRN 6. One dose of Lasix PO today. 7. Physical therapy twice a day. 8. Pt is DNR. 9. Pt wants to be discharged to home. I will see him in 1-2 weeks at cancer center to discuss the biopsy results and pain management. Clinical Quality Measures DVT/VTE Risk/Contraindication: Risk Factor Score Per Nursin TAHMINA WILKES MD May 15, 2017 11:37
[2017-05-15] MEDS: DRONABINOL 2.5 MG (MARINOL) CAP PO SCH (11:41)
--- NOTE | 2017-05-15 11:47 | Physical Therapy Daily Note ---
PT Daily Note-Current Subjective Patient agrees to PT. Pain Numeric Pain Scale: 0-No Pain Location: No Pain Reported Appearance bilateral LE edema Mental Status Patient Orientation: Normal For Age Attachments: IV Transfers Functional [place] Measure 0=Not Assessed/NA 4=Minimal Assistance 1=Total Assistance 5=Supervision or Setup 2=Maximal Assistance 6=Modified [place] 3=Moderate Assistance 7=Complete IndependenceIRFPAI Quality Coding Scale 6 Independent with activity with or without an assistive device 5 Patient requires set up or clean up by helper. Patient completes activity by themselves 4 Supervision or touching assist (CGA). [place] provide cues , steadying assist 3 The helper provides less than half the effort to complete the activity 2 The helper provides more than half the effort to complete the activity 1 Dependent. The helper does all the effort to complete an activity 7 Patient refused to complete or attempt activity 9 The patient did not perform the activity before the current illness or injury 88 Not attempted due to Medical conditions or safety concerns Transfers (B, C, W/C) (FIM): 4 Scootin Roll Left to Right (QC): 4 Supine to/from Sit: 4 Sit to/from Stand: 4 Sit to Lying (QC): 4 Sit to Stand (QC): 4 CGA for safety with use of gait belt with sit to stand transfers Weight Bearing Right Lower Extremity: Right Full Weight Bearing Left Lower Extremity: Left Full Weight Bearing Gait Training Does the Patient Walk?: Yes Gait (FIM): 4 Distance (FIM): 3=150 ft Distance: 500' Walk 50 ft with 2 Turns(QC): 4 Walk 150 ft (QC): 4 Gait Level of Assist: 4 Gait Persons Needed: 1 Gait Assistive Device: FWW skilled verbal instruction to slow pace; functional gait sequence with FWW Assessment Patient fatigues with activity today. Increase in SOA with gait. Noted bilateral LE edema. PT Custodial Goals Custodial Goals PT Glueline Worker Goals Time Frame: May 29, 2017 Transfers (B,C,W/C) (FIM): 6 Sit to Lying (QC): 6 Lying-Sitting on Side/Bed(QC): 6 Sit to Stand (QC): 6 Rollin Does the Patient Walk: Yes Gait (FIM): 5 Distance: >300' Walk 50ft with 2 Turns (QC): 5 Walk 150 ft (QC): 5 Gait Level of Assist: 5 Gait Assistive Device: FWW PT Plan Treatment/Plan Treatment Plan: Continue Plan of Care Treatment Plan: Education, Functional Activity Gur[place], Functional Strength, Gait , Safety, Therapeutic Exercise, Transfers Treatment Duration: May 29, 2017 Frequency: 11 times per week Estimated Hrs Per Day: .5 hour per day Patient and/or Family Agrees t: Yes Time/GCodes Time In: 1120 Time Out: 1137 Total Billed Treatment Time: 17 Total Billed Treatment 1 visit GT 17 min TALIA RANKIN PT May 15, 2017 11:46
[2017-05-15 12:00] VITALS: BP 107/65
[2017-05-15] MEDS ORDERED: fentaNYL PATCH 75 MCG (DURAGESIC) TD SCH (12:00)
[2017-05-15] MEDS ORDERED: fentaNYL PATCH 75 MCG (DURAGESIC) TD NR (12:04)
[2017-05-15] MEDS: CATHETER FLUSH 10 ML SYR IV SCH ×2 (12:21→21:07)
--- NOTE | 2017-05-15 14:46 | Physical Therapy Daily Note ---
PT Daily Note-Current Subjective Patient has no c/o at this time and agrees to PT. Pain Numeric Pain Scale: 0-No Pain Location: No Pain Reported Mental Status Patient Orientation: Normal For Age Attachments: IV Transfers Functional [place] Measure 0=Not Assessed/NA 4=Minimal Assistance 1=Total Assistance 5=Supervision or Setup 2=Maximal Assistance 6=Modified [place] 3=Moderate Assistance 7=Complete IndependenceIRFPAI Quality Coding Scale 6 Independent with activity with or without an assistive device 5 Patient requires set up or clean up by helper. Patient completes activity by themselves 4 Supervision or touching assist (CGA). [place] provide cues , steadying assist 3 The helper provides less than half the effort to complete the activity 2 The helper provides more than half the effort to complete the activity 1 Dependent. The helper does all the effort to complete an activity 7 Patient refused to complete or attempt activity 9 The patient did not perform the activity before the current illness or injury 88 Not attempted due to Medical conditions or safety concerns Transfers (B, C, W/C) (FIM): 5 Scootin Roll Left to Right (QC): 5 Supine to/from Sit: 5 Sit to/from Stand: 5 Sit to Lying (QC): 5 Sit to Stand (QC): 5 Weight Bearing Right Lower Extremity: Right Full Weight Bearing Left Lower Extremity: Left Full Weight Bearing Gait Training Does the Patient Walk?: Yes Gait (FIM): 4 Distance (FIM): 3=150 ft Distance: 400' Walk 50 ft with 2 Turns(QC): 4 Walk 150 ft (QC): 4 Gait Level of Assist: 4 Gait Persons Needed: 1 Gait Assistive Device: FWW CGA for safety Assessment Current Status: Good Progress PT Custodial Goals Custodial Goals PT Custodial Goals Time Frame: May 29, 2017 Transfers (B,C,W/C) (FIM): 6 Sit to Lying (QC): 6 Lying-Sitting on Side/Bed(QC): 6 Sit to Stand (QC): 6 Rollin Does the Patient Walk: Yes Gait (FIM): 5 Distance: >300' Walk 50ft with 2 Turns (QC): 5 Walk 150 ft (QC): 5 Gait Level of Assist: 5 Gait Assistive Device: FWW PT Plan Treatment/Plan Treatment Plan: Continue Plan of Care Treatment Plan: Education, Functional Activity Gurmeet, Functional Strength, Gait , Safety, Therapeutic Exercise, Transfers Treatment Duration: May 29, 2017 Frequency: 11 times per week Estimated Hrs Per Day: .5 hour per day Patient and/or Family Agrees t: Yes Time/GCodes Time In: 1425 Time Out: 1439 Total Billed Treatment Time: 14 Total Billed Treatment 1 visit GT 14 min TALIA RANKIN PT May 15, 2017 14:46
[2017-05-15 16:00] VITALS: BP 102/61
[2017-05-15] MEDS: ENOXAPARIN 40 MG/0.4 ML (LOVENOX) SYR SC SCH (16:22)
[2017-05-15] MEDS: HYDROmorphone (DILAUDID) 2 MG TAB PO PRN ×2 (18:35→23:19)
[2017-05-15 20:00] VITALS: BP 115/68
[2017-05-15] MEDS ORDERED: MIRTAZAPINE 15 MG (REMERON) TAB PO SCH (21:00)
[2017-05-15] MEDS: MENTHOL/ZINC OXIDE (CALMOSEPTINE) 113 GM TUBE TOP SCH (21:08)
[2017-05-15] MEDS: POLYETHYLENE GLYCOL 17 GM (MIRALAX) PACK PO SCH (21:08)
[2017-05-16] VITALS (7 sets, daily range): BP systolic 104–135; BP diastolic 61–74
[2017-05-16] MEDS: NS IV 1000 ML 1,000 ML IV SCH (02:05)
[2017-05-16] MEDS: HYDROmorphone (DILAUDID) 2 MG TAB PO PRN (04:57)
[2017-05-16] MEDS: ACETAMINOPHEN 500 MG TAB (TYLENOL) PO PRN (05:07)
[2017-05-16] MEDS: CATHETER FLUSH 10 ML SYR IV SCH ×3 (06:05→20:53)
[2017-05-16 06:40] LABS: ANION GAP 10 MMOL/L (5-14); BLOOD UREA NITROGEN 19 MG/DL (7-18); BUN/CREATININE RATIO 25; CALCIUM 8.2 MG/DL (8.5-10.1); CARBON DIOXIDE 20 MMOL/L (21-32); CHLORIDE 104 MMOL/L (98-107); CREATININE SERUM 0.76 MG/DL (0.60-1.30); GFR ESTIMATED > 60; GLUCOSE 101 MG/DL (70-105); POTASSIUM 4.1 MMOL/L (3.6-5.0); SODIUM 134 MMOL/L (135-145)
[2017-05-16] MEDS: FAMOTIDINE 20 MG (PEPCID) TABLET PO SCH ×2 (08:06→20:53)
[2017-05-16] MEDS: DOCUSATE SODIUM 100 MG (COLACE) CAP PO SCH ×2 (08:06→20:53)
[2017-05-16] MEDS: carBAMazepine 200 MG (TEGretol) TAB PO SCH ×2 (08:06→20:03)
[2017-05-16] MEDS: DEXAMETHASONE 4 MG TAB (DECADRON) PO SCH (08:06)
[2017-05-16] MEDS: IBUPROFEN TABLET 200 MG TAB PO SCH ×3 (08:07→18:08)
[2017-05-16] MEDS: BISACODYL 10 MG SUPP (DULCOLAX) PR SCH (08:13)
[2017-05-16] MEDS: MENTHOL/ZINC OXIDE (CALMOSEPTINE) 113 GM TUBE TOP SCH ×2 (08:13→20:53)
--- NOTE | 2017-05-16 11:39 | Physical Therapy Daily Note ---
PT Daily Note-Current Subjective Patient in bed pre tx, has no complaints of pain. states that he has been kind of light headed/groggy this morning from medication. Appearance Patient in bed post tx with nurse call, phone, tray, in the room. Mental Status Patient Orientation: Person, Place, Situation Attachments: IV Transfers Functional [place] Measure 0=Not Assessed/NA 4=Minimal Assistance 1=Total Assistance 5=Supervision or Setup 2=Maximal Assistance 6=Modified [place] 3=Moderate Assistance 7=Complete IndependenceIRFPAI Quality Coding Scale 6 Independent with activity with or without an assistive device 5 Patient requires set up or clean up by helper. Patient completes activity by themselves 4 Supervision or touching assist (CGA). [place] provide cues , steadying assist 3 The helper provides less than half the effort to complete the activity 2 The helper provides more than half the effort to complete the activity 1 Dependent. The helper does all the effort to complete an activity 7 Patient refused to complete or attempt activity 9 The patient did not perform the activity before the current illness or injury 88 Not attempted due to Medical conditions or safety concerns Transfers (B, C, W/C) (FIM): 5 Scootin Supine to/from Sit: 6 Sit to/from Stand: 5 Weight Bearing Right Lower Extremity: Right Full Weight Bearing Left Lower Extremity: Left Full Weight Bearing Gait Training Gait (FIM): 4 Distance: 300' Gait Level of Assist: 4 Gait Persons Needed: 1 Gait Assistive Device: FWW CGA, patient was slightly unsteady with ambulation, mostly when turning Treatments bed mobility, transfers, ambulation Assessment Current Status: Poor Progress more unsteady with ambulation PT Placement Secretary Goals Longterm Goals PT Longterm Goals Time Frame: May 29, 2017 Transfers (B,C,W/C) (FIM): 6 Sit to Lying (QC): 6 Lying-Sitting on Side/Bed(QC): 6 Sit to Stand (QC): 6 Rollin Does the Patient Walk: Yes Gait (FIM): 5 Distance: >300' Walk 50ft with 2 Turns (QC): 5 Walk 150 ft (QC): 5 Gait Level of Assist: 5 Gait Assistive Device: FWW PT Plan Problem List Problem List: Activity Tolerance, Functional Strength, Safety, Balance, Gait, Transfer Treatment/Plan Treatment Plan: Continue Plan of Care Treatment Plan: Education, Functional Activity Gurmeet, Functional Strength, Gait , Safety, Therapeutic Exercise, Transfers Treatment Duration: May 29, 2017 Frequency: 11 times per week Estimated Hrs Per Day: .5 hour per day Patient and/or Family Agrees t: Yes Safety Risks/Education Patient Education: Gait Training, Transfer Techniques, Correct Positioning, Safety Issues Teaching Recipient: Patient Teaching Methods: Demonstration, Discussion Response to Teaching: Reinforcement Needed Time/GCodes Time In: 1120 Time Out: 1130 Total Billed Treatment Time: 10 Total Billed Treatment 1 visit GT 10' DA MOJICA PT May 16, 2017 11:39
--- NOTE | 2017-05-16 14:59 | Physical Therapy Daily Note ---
PT Daily Note-Current Subjective Patient in bed pre tx, agrees to PT, has no complaints of pain. Patient states he is less light headed than he was this morning. Patient needs to use the restroom. Appearance Patient in bed post tx with nurse call, main, in the room. Mental Status Patient Orientation: Person, Place, Situation Attachments: IV Transfers Functional [place] Measure 0=Not Assessed/NA 4=Minimal Assistance 1=Total Assistance 5=Supervision or Setup 2=Maximal Assistance 6=Modified [place] 3=Moderate Assistance 7=Complete IndependenceIRFPAI Quality Coding Scale 6 Independent with activity with or without an assistive device 5 Patient requires set up or clean up by helper. Patient completes activity by themselves 4 Supervision or touching assist (CGA). [place] provide cues , steadying assist 3 The helper provides less than half the effort to complete the activity 2 The helper provides more than half the effort to complete the activity 1 Dependent. The helper does all the effort to complete an activity 7 Patient refused to complete or attempt activity 9 The patient did not perform the activity before the current illness or injury 88 Not attempted due to Medical conditions or safety concerns Transfers (B, C, W/C) (FIM): 5 Scootin Supine to/from Sit: 5 Sit to/from Stand: 5 Weight Bearing Right Lower Extremity: Right Full Weight Bearing Left Lower Extremity: Left Full Weight Bearing Gait Training Gait (FIM): 4 Distance: 300' Gait Level of Assist: 4 Gait Persons Needed: 1 Gait Assistive Device: FWW CGA, still unsteady but less than this morning Exercises Supine Ex: Ankle pumps, Quad Set, Straight leg raise Supine Reps: 10 Treatments bed mobility and transfers, ambulation, functional strengthening, toileting Assessment Current Status: Fair Progress improving balance from this morning PT Alf Goals Oil Driller Goals PT Alf Goals Time Frame: May 29, 2017 Transfers (B,C,W/C) (FIM): 6 Sit to Lying (QC): 6 Lying-Sitting on Side/Bed(QC): 6 Sit to Stand (QC): 6 Rollin Does the Patient Walk: Yes Gait (FIM): 5 Distance: >300' Walk 50ft with 2 Turns (QC): 5 Walk 150 ft (QC): 5 Gait Level of Assist: 5 Gait Assistive Device: FWW PT Plan Problem List Problem List: Activity Tolerance, Functional Strength, Safety, Balance, Gait, Transfer Treatment/Plan Treatment Plan: Continue Plan of Care Treatment Plan: Education, Functional Activity Gurmeet, Functional Strength, Gait , Safety, Therapeutic Exercise, Transfers Treatment Duration: May 29, 2017 Frequency: 11 times per week Estimated Hrs Per Day: .5 hour per day Patient and/or Family Agrees t: Yes Safety Risks/Education Patient Education: Gait Training, Transfer Techniques, Correct Positioning, Safety Issues Teaching Recipient: Patient Teaching Methods: Demonstration, Discussion Response to Teaching: Reinforcement Needed Time/GCodes Time In: 1425 Time Out: 1450 Total Billed Treatment Time: 25 Total Billed Treatment 1 visit EX 10' GT 15' DA MOJICA PT May 16, 2017 14:59
--- NOTE | 2017-05-16 16:21 | Oncology Progress Note ---
Subjective Time Seen by Provider: 15:30 Subjective/Events-last exam Pt was overdosed last night with pain medication and felt "foggy" this morning. He is doing much better in the afternoon. Pt does not want Remeron. Data Review Labs Laboratory Tests 05/16/17 05:28 Laboratory Tests 05/14/17 08:40: Red Blood Count 3.32L, Hemoglobin 10.6L, Hematocrit 33L, Neutrophils (%) (Auto) 90H, Lymphocytes (%) (Auto) 4L, Lymphocytes # (Auto) 0.2L, Prothrombin Time 15.1H, Sodium Level 134L, Blood Urea Nitrogen 19H, Glucose Level 125H, Alanine Aminotransferase (ALT/SGPT) 102H, Alkaline Phosphatase 180H, Total Protein 5.0L , Albumin 2.7L 05/16/17 05:28: Sodium Level 134L, Blood Urea Nitrogen 19H, Carbon Dioxide Level 20L, Calcium Level 8.2L Physical Exam Vital Signs Vital Sign - Last 12Hours 05/10/17 05/16/17 00:00 04:45 Temp 97.3 Pulse 71 Resp 19 B/P (MAP) 126/69 (88) Pulse Ox 94 O2 Delivery Room Air O2 Flow Rate 2.00 Capillary Refill : Less Than 3 Seconds General Appearance: No Apparent Distress HEENT: PERRL/EOMI Neck: Non Tender, Supple Respiratory: No Accessory Muscle Use, No Respiratory Distress Cardiovascular: Regular Rate, Rhythm, No JVD, Bradycardia Gastrointestinal: Non Tender, Soft, Distended Extremity: Non Tender, No Calf Tenderness, No Pedal Edema Neurologic/Psychiatric: Alert, Oriented x3 Impression & Plan Impression & Plan IMP: 1. Adenocarcinoma of the colon, s/p neoadjuvant chemoradiation (Xeloda) 2012, now recurrence with multiple mets in the lung, liver and bone. s/p CT guide biopsy 05/15/17. 2. Pathological fractures T3, T12/L1/L2 and mild cord compression. On Fentanyl patch 150mcg and Dilaudid PRN for pain control. 3. Nausea and vomiting, possible from narcotics but also high possibility of brain mets. 4. Pt is not interested in chemotherapy at this point but OK for radiation. 5. H/o L1 compression fracture due to injury over 10 years ago. 6. Constipation 7. Pain control. 8. Bradycardia. HR 40s resting. We had EKG and called Dr. Tejeda. He thinks it is because of the narcotic pain medication but pt is not at the point we can stop it. 9. Mild edema 10. Anemia: IV dilution and chronic illness Plan: 1. Wean off Decadron by this weekend. 2. D/C Fentanyl BOIL OFF WORKER. Stay on Fentanyl patch a total of 150mcg q 72hrs with Dilaudid 2-4 mg q4hrs PRN break through. Anticipate to be discharge home tomorrow evening if no pain flares. Pt can not take morphine or hydrocodone caused him vomiting but he can take Dilaudid PO. 3. Finished the [id number] doses of radiation 05/14/17. Re-scan in a month to evaluate the results. 4. Pepcid while on the steroid. 5. Milk magnesium, stool softener and MiraLax and hydration. Fleet enema PRN 6. D/C all IV fluid. 7. Physical therapy twice a day. 8. Pt is DNR. 9. Pt wants to be discharged to home. Plan to go home tomorrow evening. PT and family are OK for the discharge tomorrow evening. I will see him in cancer center on 05/22/17 at 3:45pm to discuss the biopsy results and evaluate the pain management. Clinical Quality Measures DVT/VTE Risk/Contraindication: Risk Factor Score Per Nursin TAHMINA WILKES MD May 16, 2017 16:21
[2017-05-16] MEDS: ENOXAPARIN 40 MG/0.4 ML (LOVENOX) SYR SC SCH (18:02)
[2017-05-16] MEDS: POLYETHYLENE GLYCOL 17 GM (MIRALAX) PACK PO SCH (20:52)
[2017-05-17] MEDS: CATHETER FLUSH 10 ML SYR IV SCH (06:12)
[2017-05-17 06:15] VITALS: BP 115/71
[2017-05-17] MEDS: IBUPROFEN TABLET 200 MG TAB PO SCH ×2 (08:12→14:25)
[2017-05-17] MEDS: carBAMazepine 200 MG (TEGretol) TAB PO SCH (08:14)
[2017-05-17] MEDS: DOCUSATE SODIUM 100 MG (COLACE) CAP PO SCH (08:14)
[2017-05-17] MEDS: FAMOTIDINE 20 MG (PEPCID) TABLET PO SCH (08:14)
[2017-05-17] MEDS ORDERED: DEXAMETHASONE 4 MG TAB (DECADRON) PO SCH (09:00)
[2017-05-17] MEDS: BISACODYL 10 MG SUPP (DULCOLAX) PR SCH (09:03)
[2017-05-17] MEDS: MENTHOL/ZINC OXIDE (CALMOSEPTINE) 113 GM TUBE TOP SCH (10:42)
--- NOTE | 2017-05-17 10:59 | Physical Therapy Daily Note ---
PT Daily Note-Current Subjective Patient in bed pre tx, agrees to PT, has no complaints of pain. Patient states he is not light headed today. Appearance Patient sitting EOB post tx with nurse call, tray, in the room. Mental Status Patient Orientation: Person, Place Transfers Functional [place] Measure 0=Not Assessed/NA 4=Minimal Assistance 1=Total Assistance 5=Supervision or Setup 2=Maximal Assistance 6=Modified [place] 3=Moderate Assistance 7=Complete IndependenceIRFPAI Quality Coding Scale 6 Independent with activity with or without an assistive device 5 Patient requires set up or clean up by helper. Patient completes activity by themselves 4 Supervision or touching assist (CGA). [place] provide cues , steadying assist 3 The helper provides less than half the effort to complete the activity 2 The helper provides more than half the effort to complete the activity 1 Dependent. The helper does all the effort to complete an activity 7 Patient refused to complete or attempt activity 9 The patient did not perform the activity before the current illness or injury 88 Not attempted due to Medical conditions or safety concerns Transfers (B, C, W/C) (FIM): 5 Scootin Supine to/from Sit: 6 Sit to/from Stand: 5 Weight Bearing Right Lower Extremity: Right Full Weight Bearing Left Lower Extremity: Left Full Weight Bearing Gait Training Gait (FIM): 4 Distance: 300' Gait Level of Assist: 4 Gait Persons Needed: 1 Gait Assistive Device: FWW CGA, patient did have an occasional moment of unsteadiness but much better than yesterday, he does tend to scissor slightly when walking but he did not trip Exercises Seated Therapy Exercises: Ankle pumps, Long arc quads, Hip flexion Seated Reps: 20 Treatments bed mobility and transfers, ambulation, functional strengthening Assessment Current Status: Fair Progress improving balance and endurance PT Shelter Goals Shelter Goals PT Shelter Goals Time Frame: May 29, 2017 Transfers (B,C,W/C) (FIM): 6 Sit to Lying (QC): 6 Lying-Sitting on Side/Bed(QC): 6 Sit to Stand (QC): 6 Rollin Does the Patient Walk: Yes Gait (FIM): 5 Distance: >300' Walk 50ft with 2 Turns (QC): 5 Walk 150 ft (QC): 5 Gait Level of Assist: 5 Gait Assistive Device: FWW PT Plan Problem List Problem List: Activity Tolerance, Functional Strength, Safety, Balance, Gait, Transfer Treatment/Plan Treatment Plan: Continue Plan of Care Treatment Plan: Education, Functional Activity Gurmeet, Functional Strength, Gait , Safety, Therapeutic Exercise, Transfers Treatment Duration: May 29, 2017 Frequency: 11 times per week Estimated Hrs Per Day: .5 hour per day Patient and/or Family Agrees t: Yes Safety Risks/Education Patient Education: Gait Training, Transfer Techniques, Correct Positioning, Safety Issues Teaching Recipient: Patient Teaching Methods: Demonstration, Discussion Response to Teaching: Reinforcement Needed Time/GCodes Time In: 1040 Time Out: 1055 Total Billed Treatment Time: 15 Total Billed Treatment 1 visit GT 15' DA MOJICA PT May 17, 2017 10:59
[2017-05-17] MEDS ORDERED: DEXA4TAB PO (13:22)
[2017-05-17] MEDS ORDERED: FAMO20TA5 PO (13:22)
[2017-05-17] MEDS ORDERED: Patch Removal TP (13:22)
[2017-05-17] MEDS ORDERED: FENT1PAT58 TD (13:22)
[2017-05-17] MEDS ORDERED: MENT71OI TOP (13:22)
[2017-05-17] MEDS ORDERED: FENT1PAT11 TD (13:22)
[2017-05-17] MEDS ORDERED: HYDR2TAB6 PO (13:30)
[2017-05-17] MEDS ORDERED: DOCU100C37 PO (13:33)
[2017-05-17] MEDS ORDERED: DEXAMETHASONE 4 MG TAB (DECADRON) PO NR (14:00)
--- NOTE | 2017-05-17 14:41 | Physical Therapy Daily Note ---
PT Daily Note-Current Subjective Patient and family agree to PT. They report he is going home on this date. Pain Numeric Pain Scale: 0-No Pain Location: No Pain Reported Mental Status Patient Orientation: Normal For Age Transfers Functional [place] Measure 0=Not Assessed/NA 4=Minimal Assistance 1=Total Assistance 5=Supervision or Setup 2=Maximal Assistance 6=Modified [place] 3=Moderate Assistance 7=Complete IndependenceIRFPAI Quality Coding Scale 6 Independent with activity with or without an assistive device 5 Patient requires set up or clean up by helper. Patient completes activity by themselves 4 Supervision or touching assist (CGA). [place] provide cues , steadying assist 3 The helper provides less than half the effort to complete the activity 2 The helper provides more than half the effort to complete the activity 1 Dependent. The helper does all the effort to complete an activity 7 Patient refused to complete or attempt activity 9 The patient did not perform the activity before the current illness or injury 88 Not attempted due to Medical conditions or safety concerns Transfers (B, C, W/C) (FIM): 4 Scootin Roll Left to Right (QC): 5 Supine to/from Sit: 5 Sit to/from Stand: 4 Sit to Lying (QC): 5 Sit to Stand (QC): 4 CGA with use of gait belt for safety; Education with patient and daughter on use of gait belt with ambulation and transfers. Weight Bearing Right Lower Extremity: Right Full Weight Bearing Left Lower Extremity: Left Full Weight Bearing Gait Training Does the Patient Walk?: Yes Gait (FIM): 4 Distance (FIM): 3=150 ft Distance: 400' Walk 50 ft with 2 Turns(QC): 4 Walk 150 ft (QC): 4 Gait Level of Assist: 4 Gait Persons Needed: 1 Gait Assistive Device: FWW skilled verbal instruction/education with patient on gait sequence and to watch his pattern to ensure safe, reciprocal, WBOS with use of FWW. Patient does perform scissor gait sequence when not paying attention. Treatments Education with family and patient on importance of exercise and ambulation to improve strength and functional mobility. Gait belt issued for home use and to be utilized PRN. Assessment Patient remains at a [facility] L[facility] with functional mobility for safety. Patient and family educated on importance of continuing with exercise and ambulation secondary patient/family refusal to have home health therapy or hospice. From a PT standpoint, patient would benefit from home health PT and family/patient was made aware. Family report they are able to continue with exercise program at home. Goals were address, however, not attained. PT Work Force Advisor Goals Work Force Advisor Goals PT Group Home Goals Time Frame: May 29, 2017 Transfers (B,C,W/C) (FIM): 6 Sit to Lying (QC): 6 Lying-Sitting on Side/Bed(QC): 6 Sit to Stand (QC): 6 Rollin Does the Patient Walk: Yes Gait (FIM): 5 Distance: >300' Walk 50ft with 2 Turns (QC): 5 Walk 150 ft (QC): 5 Gait Level of Assist: 5 Gait Assistive Device: FWW PT Plan Treatment/Plan Treatment Plan: Discontinue PT Treatment Plan: Education, Functional Activity [place], Functional Strength, Gait , Safety, Therapeutic Exercise, Transfers Treatment Duration: May 29, 2017 Frequency: 11 times per week Estimated Hrs Per Day: .5 hour per day Patient and/or Family Agrees t: Yes Time/GCodes Time In: 1407 Time Out: 1433 Total Billed Treatment Time: 25 Total Billed Treatment 1 visit GT 10 min Educ 15 min TALIA RANKIN PT May 17, 2017 14:41
--- NOTE | 2017-05-17 14:48 | Therapy Team Discharge Summary ---
Therapy Discharge Summary Discharge Recommendations Date of Discharge Therapy D/C Recommendations: Home w/ Family Support Physical Therapy Patient remains at a [facility] L[facility] with functional mobility for safety. Patient and family educated on importance of continuing with exercise and ambulation secondary patient/family refusal to have home health therapy or hospice. From a PT standpoint, patient would benefit from home health PT and family/patient was made aware. Family report they are able to continue with exercise program at home. Goals were address, however, not attained. PT Yacht Hand Goals Yacht Hand Goals PT Yacht Hand Goals Time Frame: May 29, 2017 Transfers (B,C,W/C) (FIM): 6 Sit to Lying (QC): 6 Lying-Sitting on Side/Bed(QC): 6 Sit to Stand (QC): 6 Rollin Does the Patient Walk: Yes Gait (FIM): 5 Distance: >300' Walk 50ft with 2 Turns (QC): 5 Walk 150 ft (QC): 5 Gait Level of Assist: 5 Gait Assistive Device: FWW OT Yacht Hand Goals Fpc Goals 1=Demonstrate adherence to instructed precautions during ADL tasks. 2=Patient will verbalize/demonstrate understanding of assistive devices/ modifications for ADL. 3=Patient will improve strength/tolerance for activity to enable patient to perform ADL's. TALIA RANKIN PT May 17, 2017 14:48
--- NOTE | 2017-05-17 16:03 | Oncology Discharge Summary ---
Diagnosis/Chief Complaint Date of Admission May 07, 2017 at 14:45 Date of Discharge Discharge Date: May 17, 2017 Discharge Diagnosis 1. Adenocarcinoma of the colon, s/p neoadjuvant chemoradiation (Xeloda) 2012, now recurrence with multiple mets in the lung, liver and bone. s/p CT guide biopsy 05/15/17. 2. Pathological fractures T3, T12/L1/L2 and mild cord compression. s/p 10 days of radiation treatment completed 05/15/17 along with Decadron. On Fentanyl patch 150mcg and Dilaudid PRN for pain control. 3. Nausea and vomiting, possible from narcotics. 4. Pt is not interested in chemotherapy at this point but OK for radiation. 5. H/o L1 compression fracture due to injury over 10 years ago. 6. Constipation 7. Pain control. 8. Bradycardia. most likely from narcotic pain medication 9. Mild edema 10. Anemia: IV dilution and chronic illness Reason Hospital Visit Mr. Pathak is a 67 year old white who was admitted for colon cancer recurrence with multiple mets in the lung, liver and bone and pathological fractures T3, T12/L1/L2 and mild cord compression. He was treated with radiation and Decadron initial IV then PO. He was also given Fentanyl CHARTER AND TOUR BUS DRIVER for pain control. He had nausea and vomiting when we tried Morphine and Hydrocodone. He also had physical therapy to help strengthen his legs. He had CT guided biopsy of right lower lobe lesion of the lung on 05/15/17. We changed his [employer] TOUR BUS DRIVER to Fentanyl patch 150mcg and Dilaudid PRN for pain control 2-3 days before discharge and he did well on it. He was discharged on 05/17/17 to home per his family request. Pt is DNR. Discharge condition: Stable and improved. F/u with Dr Villanueva on 05/22/17 at cancer center. Pt was educated about the pain medication and constipation prophylax before discharge. Discharge Summary Discharge Instructions to patient/family Please see electronic discharge instructions given to patient. Discharge Medications Reviewed and agree with Discharge Medication list on patient's Discharge Instruction sheet Clinical Quality Measures DVT/VTE Risk/Contraindication: Risk Factor Score Per NursinTAHMINA MCELROY MD May 17, 2017 16:03
[2017-05-17] MEDS ORDERED: FENTANYL PATCH REMOVAL TP SCH (16:14)
[2017-05-17] MEDS ORDERED: fentaNYL PATCH 75 MCG (DURAGESIC) TD SCH (16:15)
== END 2017-05-17 16:02 | disposition home or self-care (01) | DRG 948 ==
LOC: 4TH 14:45 → EEVIPCON 14:45
PROVIDERS: ADMIT Family Medicine; ATTEND Internal Medicine Hematology & Oncology
DX: G89.3 Neoplasm related pain (acute) (chronic) (principal); C79.51 Secondary malignant neoplasm of bone; C78.01 Secondary malignant neoplasm of right lung; C78.02 Secondary malignant neoplasm of left lung; M84.58XA Pathological fracture in neoplastic disease, other specified site, initial encounter for fracture; G99.2 Myelopathy in diseases classified elsewhere; C18.9 Malignant neoplasm of colon, unspecified; C78.7 Secondary malignant neoplasm of liver and intrahepatic bile duct; K52.0 Gastroenteritis and colitis due to radiation; Z66 Do not resuscitate; K59.00 Constipation, unspecified; Z92.21 Personal history of antineoplastic chemotherapy; Z92.3 Personal history of irradiation; Z87.891 Personal history of nicotine dependence; Z86.718 Personal history of other venous thrombosis and embolism; Z87.820 Personal history of traumatic brain injury; R00.1 Bradycardia, unspecified; D64.9 Anemia, unspecified; D63.8 Anemia in other chronic diseases classified elsewhere
CPT/HCPCS: 36415; 70553; 71035; 72157; 77012; 77336; 77417; 80048; 80053; 84153; 85025; 85027; 85610; 85730; 93005; 94760

== ENCOUNTER → 2017-05-18 | Outpatient (CLI) | payer BC ==
[~2017-05-18] MED LIST changes: +DEXA4TAB PO; +DOCU100C37 PO; +FAMO20TA5 PO; +FENT1PAT11 TD; +FENT1PAT58 TD; +HYDR2TAB6 PO; +MENT71OI TOP; +Patch Removal TP
== END ==
LOC: ONC 15:16
PROVIDERS: ATTEND Internal Medicine Hematology & Oncology
DX: C79.51 Secondary malignant neoplasm of bone (principal); C78.01 Secondary malignant neoplasm of right lung; C78.02 Secondary malignant neoplasm of left lung; C78.7 Secondary malignant neoplasm of liver and intrahepatic bile duct; C20 Malignant neoplasm of rectum; M84.58XA Pathological fracture in neoplastic disease, other specified site, initial encounter for fracture; G99.2 Myelopathy in diseases classified elsewhere; D63.8 Anemia in other chronic diseases classified elsewhere; Z66 Do not resuscitate; K59.00 Constipation, unspecified; Z92.21 Personal history of antineoplastic chemotherapy; Z92.3 Personal history of irradiation; Z87.891 Personal history of nicotine dependence; Z86.718 Personal history of other venous thrombosis and embolism; Z87.820 Personal history of traumatic brain injury
CPT/HCPCS: 99213